=== PATIENT | male | born 1985 | race Caucasian/White ===

== ENCOUNTER 2016-11-24 19:59 | Inpatient (IN) | payer SELFPAY ==
[~2016-11-24] VITALS: Ht 182.9 cm; Wt 88.7 kg
[2016-11-24 20:01] VITALS: BP 139/99; PULSE 137; RESP 20; TEMP 100.8; O2SAT 85
[2016-11-24] MEDS ORDERED: SODIUM CHLOR 0.9% 1000 ML INJ 1,000 ML IV ONE (20:30)
[2016-11-24] MEDS ORDERED: SODIUM CHLORIDE 0.9% FLUSH 5 ML FLUSH IVF PRN (20:30)
[2016-11-24 20:39] VITALS: BP 158/84; PULSE 132; RESP 28; TEMP 102.5; O2SAT 86
[2016-11-24] MEDS: RESP: ALBUTEROL 2.5 MG/IPRATROPIUM 0.5 MG NEB (SCH) INH (20:43)
[2016-11-24 20:44] VITALS: O2SAT 96
[2016-11-24 20:46] LABS: AUTOMATED NEUTROPHIL # 2.9 TH/MM3 (1.8-7.7); BASOPHIL % 0.5 % (0.0-2.0); EOSINOPHIL % 0.6 % (0.0-4.0); HEMATOCRIT 36.3 % (39.0-51.0); LYMPH % 18.1 % (9.0-44.0); LYMPHOCYTE # 0.7 TH/MM3 (1.0-4.8); MEAN CELL VOLUME 83.3 FL (80.0-100.0); MEAN CORPUSCULAR HEMOGLOBIN 28.7 PG (27.0-34.0); MEAN CORPUSCULAR HGB CONC 34.4 % (32.0-36.0); MONO % 8.1 % (0.0-8.0); NEUT % 72.7 % (16.0-70.0); PLATELET COUNT 326 TH/MM3 (150-450); RED BLOOD COUNT 4.35 MIL/MM3 (4.50-5.90); RED CELL DISTRIBUTION WIDTH 14.4 % (11.6-17.2); WHITE BLOOD COUNT 3.9 TH/MM3 (4.0-11.0)
[2016-11-24 20:49] LABS: HEMO FLAGS AUTO DIFF
[2016-11-24] MEDS ORDERED: ACETAMINOPHEN 500 MG CPLT PO ONE (21:00)
[2016-11-24] MEDS ORDERED: AZITHROMYCIN INJ 500 MG in SODIUM CHLOR 0.9% 250 ML INJ 250 ML IV ONE (21:00)
[2016-11-24] MEDS ORDERED: cefTRIAXone INJ 1,000 MG in SODIUM CHLORIDE 0.9% INJ 100 ML IV ONE (21:00)
--- NOTE | 2016-11-24 21:02 | PD ---
HPI Chief Complaint: Respiratory Symptoms Time Seen by Provider: 20:56 Travel History International Travel<30 days: No Contact w/Intl Traveler<30days: No Traveled to known affect area: No History of Present Illness HPI 31-year-old male presents emergency Department with complaints of shortness of breath. The patient's history is assisted using the [employer] interpretive services. The patient is a Lebanese-speaking individual. The patient has been sick now for the past 15 days. He states that he has had intermittent fever and chills, cough, congestion which has gotten significantly worse in the last week. He has had increasing shortness of breath, dyspnea on exertion, that has gotten worse with dyspnea now at rest. He admits to headache , congestion, nausea, posttussive emesis and general malaise. He denies any ear pain or sore throat. No abdominal pain. No dysuria or frequency. No rashes or lesions. History of asthma as a child. COUNT INCLUDES THE [facility] Past Medical History Narrative Medical Asthma as a child Asthma: Yes Diminished Hearing: No Tetanus Vaccination: < 5 Years Past Surgical History Surgical History: No Previous Surgery Social History Alcohol Use: No Tobacco Use: No Substance Use: No Allergies-Medications (Allergen,Severity, Reaction): Coded Allergies: Penicillin (Verified Allergy, Unknown, 11/24/16) Physical Exam Narrative GENERAL: Well-developed, well-nourished in moderate respiratory distress. Speaks in 2-3 word sentences HEAD: Normocephalic, atraumatic. EYES: Pupils equal round and reactive. Extraocular motions intact. No scleral icterus. No injection or drainage. ENT: Nose clear. Throat without erythema, tonsillar hypertrophy or exudate. Uvula midline. Airway patent. NECK: Trachea midline. Supple, nontender, moves head freely. No central bony tenderness or spasm. CARDIOVASCULAR: Regular tachycardic rate and rhythm without murmurs, gallops, or rubs. RESPIRATORY: Tachypneic. diffuse decreased breath sounds. Few rhonchi. No wheezes or Rales. GASTROINTESTINAL: Abdomen soft, non-tender, nondistended. No hepato-splenomegaly , or palpable masses. No guarding. EXTREMITIES: No clubbing, cyanosis, or edema. No joint tenderness. BACK: Nontender without deformity. No flank tenderness. NEUROLOGICAL: Awake, alert and oriented x 3 .Cranial nerves grossly intact. Motor and sensory grossly within normal limits. Normal speech. Data Data Last Documented VS Vital Signs Date Time Temp Pulse Resp B/P Pulse Ox O2 Delivery O2 Flow Rate FiO2 11/24/16 20:44 96 Nasal Cannula 4.00 11/24/16 20:39 102.5 132 28 158/84 Orders Electrocardiogram (11/24/16 20:18) Basic Metabolic Panel (Bmp) (11/24/16 20:18) Complete Blood Count With Diff (11/24/16 20:18) Chest, Single Ap (11/24/16 20:18) Ecg Monitoring (11/24/16 20:18) Iv Access Insert/Monitor (11/24/16 20:18) Oximetry (11/24/16 20:18) Oxygen Administration (11/24/16 20:18) Albuterol-Ipratropium Neb (Duoneb Neb) (11/24/16 20:30) Sodium Chloride 0.9% Flush (Ns Flush) (11/24/16 20:30) Lactic Acid (11/24/16 20:18) Sodium Chlor 0.9% 1000 Ml Inj (Ns 1000 M (11/24/16 20:30) Influenzae A/B Antigen (11/24/16 20:18) B-Type Natriuretic Peptide (11/24/16 20:46) Blood Culture (11/24/16 20:46) Acetaminophen (Tylenol) (11/24/16 21:00) Ceftriaxone Inj (Rocephin Inj) (11/24/16 21:00) Azithromycin Inj (Zithromax Inj) (11/24/16 21:00) Admit Order (Ed Use Only) (11/24/16 21:54) Labs Laboratory Tests Test 11/24/16 11/24/16 20:30 20:45 White Blood Count 3.9 TH/MM3 Red Blood Count 4.35 MIL/MM3 Hemoglobin 12.5 GM/DL Hematocrit 36.3 % Mean Corpuscular Volume 83.3 FL Mean Corpuscular Hemoglobin 28.7 PG Mean Corpuscular Hemoglobin 34.4 % Concent Red Cell Distribution Width 14.4 % Platelet Count 326 TH/MM3 Mean Platelet Volume 7.1 FL Neutrophils (%) (Auto) 72.7 % Lymphocytes (%) (Auto) 18.1 % Monocytes (%) (Auto) 8.1 % Eosinophils (%) (Auto) 0.6 % Basophils (%) (Auto) 0.5 % Neutrophils # (Auto) 2.9 TH/MM3 Lymphocytes # (Auto) 0.7 TH/MM3 Monocytes # (Auto) 0.3 TH/MM3 Eosinophils # (Auto) 0.0 TH/MM3 Basophils # (Auto) 0.0 TH/MM3 CBC Comment AUTO DIFF Differential Total Cells 100 Counted Neutrophils % (Manual) 75 % Band Neutrophils % 13 % Lymphocytes % 4 % Monocytes % 8 % Neutrophils # (Manual) 3.4 TH/MM3 Differential Comment FINAL DIFF MANUAL Platelet Estimate NORMAL Platelet Morphology Comment NORMAL Ovalocytes 2+ [place]innie Cells 1+ Sodium Level 130 MEQ/L Potassium Level 3.4 MEQ/L Chloride Level 96 MEQ/L Carbon Dioxide Level 26.8 MEQ/L Anion Gap 7 MEQ/L Blood Urea Nitrogen 9 MG/DL Creatinine 0.76 MG/DL Estimat Glomerular Filtration 118 ML/MIN Rate Random Glucose 83 MG/DL Lactic Acid Level 1.0 mmol/L Calcium Level 8.2 MG/DL B-Type Natriuretic Peptide 12 PG/ML MDM Medical Decision Making Medical Screen Exam Complete: Yes Emergency Medical Condition: Yes Medical Record Reviewed: Yes Interpretation(s) CBC & BMP Diagram 11/24/16 20:30 Lactic: Negative Influenza: Negative EKG: Sinus tachycardia with a ventricular rate of 125. Left axis deviation with a axis of -28. No ST T wave changes. No STEMI. Differential Diagnosis MDM: High Differential diagnoses: Pneumonia, bronchitis, URI, asthma, RAD, legionnaire's disease, SARS, ARDS, influenza, bronchiolitis, RSV,PE,CHF Narrative Course Patient is placed on a quality assurance monitor, O2 monitoring, patient is given O2 by nasal cannula, IV is initiated. Patient is given 3 duo nebs, 1 L bolus of normal saline. 1 g of Tylenol by mouth, Rocephin 1 g IV and 500 mg of Zithromax IV. Blood cultures 2, influenza swab. The patient states that he is feeling subjectively improved after his breathing treatments and oxygen. Have spoken with Dr. Dallas who has agreed to admit the patient. This is respiratory distress, interstitial pneumonia, hypoxemia Diagnosis Primary Impression: Respiratory distress Additional Impressions: Interstitial pneumonia Hypoxemia Admitting Information Admitting Physician Requests: Admit Condition: Stable Dandy Nice Nov 24, 2016 21:02
--- NOTE | 2016-11-24 21:09 | RADRPT ---
EXAM DATE/TIME: 11/24/2016 20:31 [facility] COMPARISON: No previous studies available for comparison. INDICATIONS : Wheezing, Short of Breath. MEDICAL HISTORY : None. SURGICAL HISTORY : None. ENCOUNTER: Initial ACUITY: 1 day PAIN SCORE: 0/10 LOCATION: Bilateral chest FINDINGS: Mild hazy opacities seen throughout both lungs suggesting mild pulmonary edema versus atypical pneumo pippa or pneumonitis. Heart size upper limits of normal. No definite pleural effusion seen. No pneumoth orax. CONCLUSION: Bilateral diffuse hazy opacities as above. Amado Velasco MD on November 24, 2016 at 21:07 Board Certified Radiologist. This report was verified electronically.
[2016-11-24 21:17] LABS: BICARBONATE 26.8 MEQ/L (21.0-32.0)
[2016-11-24 21:19] LABS: POTASSIUM 3.4 MEQ/L (3.5-5.1)
[2016-11-24 21:30] LABS: BANDS 13 % (0-6); NEUTROPHIL # MANUAL DIFF 3.4 TH/MM3 (1.8-7.7); POLYS (SEG NEUTROPHILS) 75 % (16-70); WBC DIFF SAMPLE 100
[2016-11-24 21:31] LABS: BURR CELLS 1+ (NORMAL); OVALOCYTES 2+ (NORMAL); PLATELET ESTIMATE SMEAR NORMAL (NORMAL); PLATELET MORPHOLOGY NORMAL (NORMAL); SCAN/DIFF FINAL DIFF MANUAL
[2016-11-24] MEDS ORDERED: SODIUM CHLORIDE 0.9% FLUSH 5 ML FLUSH FLUSH PRN (22:15)
[2016-11-24] MEDS ORDERED: Vancomycin Consult Pharmacy 1 EA OTHER SCH (22:15)
[2016-11-24] MEDS ORDERED: RESP: ALBUTEROL 2.5 MG/IPRATROPIUM 0.5 MG NEB (PRN) NEB (22:15)
[2016-11-24] MEDS ORDERED: ONDANSETRON HCL 4 MG/2 ML VIAL IVP PRN (22:15)
[2016-11-24] MEDS ORDERED: BISACODYL 10 MG SUPP PR PRN (22:15)
--- NOTE | 2016-11-24 22:17 | HHI.HP ---
[facility] [place] No Primary Care Physician Admission Diagnosis respiratory distress, diffuse interstitial pneumonia, hypoxemia Diagnoses: (1) Sepsis Diagnosis: Principal (2) PNA (pneumonia) Diagnosis: Principal (3) Hypoxia Diagnosis: Principal (4) Hypokalemia Diagnosis: Principal (5) Hyponatremia Diagnosis: Principal Travel History International Travel<30 Days: No Contact w/Intl Traveler <30 Da: No Traveled to Known Affected Are: No History of Present Illness This is a Georgian-speaking 31-year-old male with no reported PMH who presented to the ER with complaints of fever, chills, cough and SOB x1 wk. Denies nausea , vomiting or sick contacts. On arrival, BP 139/99, HR 137, O2 sat 85% on RA, Temp 102.5. WBC 3.9. Bands 13. Na 130. K+ 3.4. Lactic Acid 1.0. CXR w/ diffuse bilateral hazy opacities. S/p Rocephin/Zithro and Blood Cultures in ER. Review of Systems Other ROS: 14 point review of systems otherwise negative. Past Family Social History Past Medical History PMH: None Past Surgical History PAST SURGICAL HISTORY: None Allergies: Coded Allergies: Penicillin (Verified Allergy, Unknown, 11/24/16) Family History PAST FAMILY HISTORY: Reviewed. No h/o DM or CAD Social History PAST SOCIAL HISTORY: Negative for alcohol, tobacco or drugs. Physical Exam Vital Signs Vital Signs Date Time Temp Pulse Resp B/P Pulse Ox O2 Delivery O2 Flow Rate FiO2 11/24/16 20:44 96 Nasal Cannula 4.00 11/24/16 20:41 Nasal Cannula 4 11/24/16 20:40 92 Nasal Cannula 4 11/24/16 20:39 102.5 132 28 158/84 86 Room Air 11/24/16 20:01 100.8 137 20 139/99 85 Room Air Physical Exam PE: GENERAL: Pleasant male in no acute distress. HEENT: PERRLA, EOMI. No scleral icterus or conjunctival pallor. No lid lag or facial droop. CARDIOVASCULAR: Regular rate and rhythm. No obvious murmurs to auscultation. No chest tenderness to palpation. RESPIRATORY: Scattered rhonchi. No wheezing. Clear to auscultation. Breath sounds equal bilaterally. GASTROINTESTINAL: Abdomen soft, non-tender, nondistended. BS normal. MUSCULOSKELETAL: Extremities without clubbing, cyanosis, or edema. No obvious deformities. NEUROLOGICAL: Awake, alert and oriented x4. No focal neurologic deficits. Moving both upper and lower extremities spontaneously. Laboratory Laboratory Tests Test 11/24/16 11/24/16 20:30 20:45 White Blood Count 3.9 Red Blood Count 4.35 Hemoglobin 12.5 Hematocrit 36.3 Mean Corpuscular Volume 83.3 Mean Corpuscular Hemoglobin 28.7 Mean Corpuscular Hemoglobin 34.4 Concent Red Cell Distribution Width 14.4 Platelet Count 326 Mean Platelet Volume 7.1 Neutrophils (%) (Auto) 72.7 Lymphocytes (%) (Auto) 18.1 Monocytes (%) (Auto) 8.1 Eosinophils (%) (Auto) 0.6 Basophils (%) (Auto) 0.5 Neutrophils # (Auto) 2.9 Lymphocytes # (Auto) 0.7 Monocytes # (Auto) 0.3 Eosinophils # (Auto) 0.0 Basophils # (Auto) 0.0 CBC Comment AUTO DIFF Differential Total Cells 100 Counted Neutrophils % (Manual) 75 Band Neutrophils % 13 Lymphocytes % 4 Monocytes % 8 Neutrophils # (Manual) 3.4 Differential Comment FINAL DIFF MANUAL Platelet Estimate NORMAL Platelet Morphology Comment NORMAL Ovalocytes 2+ [place] Cells 1+ Sodium Level 130 Potassium Level 3.4 Chloride Level 96 Carbon Dioxide Level 26.8 Anion Gap 7 Blood Urea Nitrogen 9 Creatinine 0.76 Estimat Glomerular Filtration 118 Rate Random Glucose 83 Lactic Acid Level 1.0 Calcium Level 8.2 B-Type Natriuretic Peptide 12 Date/Time Procedure Status Source Growth 11/24/16 20:55 Aerobic Blood Culture Received Blood Peripheral Pending 11/24/16 20:55 Anaerobic Blood Culture Received Blood Peripheral Pending 11/24/16 20:30 Influenza Types A,B Antigen (NUVIA) - Final Complete Nasal Washing NEGATIVE FOR FLU A AND B ANTIGEN.... Result Diagram: 11/24/16202911/24/162029 Assessment and Plan Problem List: (1) Sepsis ICD Code: A41.9 Status: Acute (2) PNA (pneumonia) ICD Code: J18.9 Status: Acute (3) Hypoxia ICD Code: R09.02 Status: Acute (4) Hyponatremia ICD Code: E87.1 Status: Acute (5) Hypokalemia ICD Code: E87.6 Status: Acute Assessment and Plan A/P: 1. Sepsis: Temp 102.5, HR 130's, WBC 3.9. Lactic Acid normal. Source-PNA. S /p Blood Cultures, Rocephin/Zithro in ER. Will continue w/ IV Vanc/Cefepime for broad spectrum coverage in light of sepsis w/ significant bandemia. Follow up cultures. 2. PNA: CXR w/ diffuse bilateral hazy opacities, images reviewed by me. IV Vanc/Cefepime, DuoNeb, Symbicort. Check Sputum Cultures. 3. Hypoxia: Significant hypoxia w/ O2 sat 85% on RA upon arrival, currently 93 % on 4L NC. Continue w/ IV Abx, DuoNeb, telemetry, monitor O2 sat closely. 4. Hypokalemia: K+ 3.4, s/p replacement, will recheck and replace as needed. 5. Hyponatremia: Na 130, start IVF, check U/a, repeat labs in am. 6. DVT Prophylaxis: SCD/Teds. 7. Social work for d/c planning as needed. 8. Case discussed w/ ER physician at length. Physician Certification 2 Midnight Certification Type: Admission for Inpatient Services Order for Inpatient Services The services are ordered in accordance with Medicare regulations or non- Medicare payer requirements, as applicable. In the case of services not specified as inpatient-only, they are appropriately provided as inpatient services in accordance with the 2-midnight benchmark. Estimated LOS (days): 2 days is the estimated time the patient will need to remain in the hospital, assuming treatment plan goals are met and no additional complications. Post-Hospital Plan: Not yet determined Cierra Dallas MD Nov 24, 2016 22:17
[2016-11-24 23:28] VITALS: BP 134/76; PULSE 110; RESP 24; O2SAT 93
[2016-11-25] VITALS (7 sets, daily range): BP systolic 118–158; BP diastolic 75–94; PULSE 102–124; RESP 20–22; TEMP 98.8–102.7; O2SAT 92–98
[2016-11-25] MEDS ORDERED: POTASSIUM CHLORIDE 20 MEQ CONTROLLED RELEASE TAB PO ONE (01:00)
[2016-11-25] MEDS ORDERED: [UNRECOGNIZED DRUG - REMARK] XX SCH (01:15)
[2016-11-25] MEDS: SODIUM CHLOR 0.9% 1000 ML INJ 1,000 ML IV SCH ×3 (02:10→18:13)
[2016-11-25] MEDS ORDERED: VANCOMYCIN INJ 2,000 MG in SODIUM CHLORID 0.9% 500 ML INJ 500 ML IV SCH (03:00)
[2016-11-25 04:48] LABS: AUTOMATED NEUTROPHIL # 3.1 TH/MM3 (1.8-7.7); BASOPHIL % 0.4 % (0.0-2.0); EOSINOPHIL % 0.6 % (0.0-4.0); HEMATOCRIT 32.8 % (39.0-51.0); LYMPH % 14.1 % (9.0-44.0); LYMPHOCYTE # 0.6 TH/MM3 (1.0-4.8); MEAN CELL VOLUME 83.6 FL (80.0-100.0); MEAN CORPUSCULAR HEMOGLOBIN 29.1 PG (27.0-34.0); MEAN CORPUSCULAR HGB CONC 34.8 % (32.0-36.0); MONO % 7.2 % (0.0-8.0); NEUT % 77.7 % (16.0-70.0); PLATELET COUNT 293 TH/MM3 (150-450); RED BLOOD COUNT 3.92 MIL/MM3 (4.50-5.90); RED CELL DISTRIBUTION WIDTH 14.8 % (11.6-17.2)
[2016-11-25 04:55] LABS: HEMO FLAGS AUTO DIFF
[2016-11-25 04:58] LABS: BLOOD, URINE NEG (NEG); COMMENT (UR) CULT NOT INDICATED; CULTURE IF INDICATED CULT NOT INDICATED; GLUCOSE,URINE NEG (NEG); KETONE, URINE NEG (NEG); MUCUS URINE FEW /lpf (OCC); NITRITE,URINE NEG (NEG); PH, URINE 6.5 (5.0-8.5); URINE COLOR YELLOW (YELLW/STRAW)
[2016-11-25 05:13] LABS: ALT (GPT) 30 U/L (12-78); ANION GAP 6 MEQ/L (5-15); AST (GOT) 59 U/L (15-37); BICARBONATE 29.5 MEQ/L (21.0-32.0); BLOOD UREA NITROGEN 7 MG/DL (7-18); CHLORIDE 101 MEQ/L (98-107); GLOMERULAR FILTRATION RATE 124 ML/MIN (>89); POTASSIUM 3.5 MEQ/L (3.5-5.1); SODIUM (NA) 136 MEQ/L (136-145)
[2016-11-25 05:15] LABS: ALKALINE PHOSPHATASE 78 U/L (45-117); TOTAL BILIRUBIN ADULT 0.5 MG/DL (0.2-1.0)
[2016-11-25] MEDS: RESP: ALBUTEROL 2.5 MG/IPRATROPIUM 0.5 MG NEB (SCH) NEB ×4 (07:10→22:11)
[2016-11-25 07:14] LABS: BANDS 3 % (0-6); EOSINOPHILS 1 % (0-4); MYELOCYTES 1 % (0-0); NEUTROPHIL # MANUAL DIFF 3.2 TH/MM3 (1.8-7.7); PLATELET ESTIMATE SMEAR NORMAL (NORMAL); PLATELET MORPHOLOGY NORMAL (NORMAL); POLYS (SEG NEUTROPHILS) 76 % (16-70); SCAN/DIFF FINAL DIFF MANUAL; WBC DIFF SAMPLE 100
[2016-11-25 07:15] LABS: OVALOCYTES 1+ (NORMAL)
[2016-11-25] MEDS: ACETAMINOPHEN 325 MG TAB PO PRN ×2 (08:14→21:29)
[2016-11-25] MEDS: ACETAMINOPHEN/HYDROcodone 325 MG/5 MG TAB PO PRN (08:52)
[2016-11-25] MEDS: SODIUM CHLORIDE 0.9% FLUSH 5 ML FLUSH FLUSH SCH ×2 (08:54→21:00)
[2016-11-25] MEDS ORDERED: BUDESONIDE-FORMOTEROL 160/4.5 MCG INHALER INH SCH (09:00)
[2016-11-25] MEDS ORDERED: CEFEPIME INJ 1,000 MG in SODIUM CHLORIDE 0.9% INJ 100 ML IV SCH (09:00)
--- NOTE | 2016-11-25 10:44 | HHI.PR ---
Subjective Remarks Follow-up for pneumonia Patient shortness of breath better, still coughing. No nausea or vomiting. Afebrile. Objective Vitals Vital Signs Date Time Temp Pulse Resp B/P Pulse Ox O2 Delivery O2 Flow Rate FiO2 11/25/16 09:52 18 11/25/16 07:10 99.8 108 20 141/79 98 Nasal Cannula 3 11/25/16 07:10 97 Nasal Cannula 3 11/25/16 05:37 95 Nasal Cannula 4 11/25/16 05:23 18 11/24/16 23:28 110 24 134/76 93 Nasal Cannula 4 11/24/16 20:44 96 Nasal Cannula 4.00 11/24/16 20:41 Nasal Cannula 4 11/24/16 20:40 92 Nasal Cannula 4 11/24/16 20:39 102.5 132 28 158/84 86 Room Air 11/24/16 20:01 100.8 137 20 139/99 85 Room Air I/O 11/24/16 11/24/16 11/24/16 11/25/16 11/25/16 11/25/16 07:00 15:00 23:00 07:00 15:00 23:00 Intake Total 240 ml 400 ml Output Total 600 ml Balance 240 ml -200 ml Intake Oral 240 ml 400 ml Output Urine Total 600 ml # Voids 1 # Bowel Movements 0 Result Diagram: 11/25/16 0408 11/25/16 0408 Imaging Last Impressions Chest X-Ray 11/24/162017 Signed Impressions: Service Date/Time: November 20:31 - CONCLUSION: Bilateral diffuse hazy opacities as above. Amado Velasco MD Objective Remarks Not in distress, well-nourished, looks stated age PERRL, pink conjunctiva without injection, anicteric Nose without bleeding, airway patent, oropharynx clear Supple neck, no masses or thyromegaly, trachea midline Normal rate and regular rhythm, no murmurs gallops or rubs appreciated. Decreased breath sounds bilaterally with occasional rhonchi. Normal bowel sounds, soft, non-tender, nondistended, no guarding. Extremities without clubbing, cyanosis, or edema. No rash of generalized distribution. Skin is warm and dry. AAO x3, no cranial nerve deficits, moves all 4 extremities, no focal neurologic deficits Normal mood, appropriate affect A/P Problem List: (1) Sepsis ICD Code: A41.9 Status: Acute (2) PNA (pneumonia) ICD Code: J18.9 Status: Acute (3) Hypoxia ICD Code: R09.02 Status: Acute (4) Hyponatremia ICD Code: E87.1 Status: Acute (5) Hypokalemia ICD Code: E87.6 Status: Acute Assessment and Plan This is a 31-year-old male presenting with shortness of breath, found to have pneumonia Sepsis secondary to pneumonia- tachycardic, febrile, tachypneic with leukopenia. No lactic acidosis. Chest x-ray personally reviewed showed bilateral infiltrates. Follow-up blood cultures and sputum culture. Continue vancomycin, switch cefepime to ceftriaxone and continue azithromycin. Continue duo nebs and oxygen support. Rapid flu negative. Check for Legionella antigen. Acute hypoxic respiratory failure-oxygen support as above, duo nebs Hypokalemia-replaced Hyponatremia-likely secondary to dehydration, resolved SCDs for DVT prophylaxis. Discharge Planning Discharge in 1-2 days Naren Cunningham MD Nov 25, 2016 10:44
[2016-11-25] MEDS: VANCOMYCIN INJ 1,500 MG in SODIUM CHLORID 0.9% 500 ML INJ 500 ML IV SCH ×2 (13:35→21:30)
--- NOTE | 2016-11-25 13:37 | EKG ---
Date Performed: 11/24/2016 Time Performed: 20:48:42 PTAGE: 31 years EKG: SINUS TACHYCARDIA BORDERLINE LEFT AXIS DEVIATION ABNORMAL RHYTHM ECG NO PREVIOUS TRACING DOCTOR: Penny Leo Interpretating Date/Time 11/25/2016 13:33:58
[2016-11-25] MEDS: ACETAMINOPHEN/HYDROcodone 325 MG/10 MG TAB PO PRN ×2 (14:48→21:29)
[2016-11-25] MEDS: cefTRIAXone INJ 1,000 MG in SODIUM CHLORIDE 0.9% INJ 100 ML IV SCH (21:29)
[2016-11-26] VITALS (8 sets, daily range): BP systolic 117–163; BP diastolic 65–95; PULSE 99–135; RESP 18–22; TEMP 98.2–102.8; O2SAT 92–95
[2016-11-26] MEDS: SODIUM CHLOR 0.9% 1000 ML INJ 1,000 ML IV SCH ×2 (04:13→13:15)
[2016-11-26] MEDS: ACETAMINOPHEN/HYDROcodone 325 MG/10 MG TAB PO PRN (05:46)
[2016-11-26] MEDS: VANCOMYCIN INJ 1,500 MG in SODIUM CHLORID 0.9% 500 ML INJ 500 ML IV SCH ×2 (05:47→14:00)
[2016-11-26 07:20] LABS: AUTOMATED NEUTROPHIL # 3.4 TH/MM3 (1.8-7.7); BASOPHIL % 0.5 % (0.0-2.0); EOSINOPHIL # 0.1 TH/MM3 (0-0.4); EOSINOPHIL % 1.4 % (0.0-4.0); HEMATOCRIT 32.7 % (39.0-51.0); HEMO FLAGS DIFF FINAL; LYMPH % 16.2 % (9.0-44.0); LYMPHOCYTE # 0.7 TH/MM3 (1.0-4.8); MEAN CELL VOLUME 83.4 FL (80.0-100.0); MEAN CORPUSCULAR HEMOGLOBIN 28.5 PG (27.0-34.0); MEAN CORPUSCULAR HGB CONC 34.2 % (32.0-36.0); MONO % 4.2 % (0.0-8.0); NEUT % 77.7 % (16.0-70.0); PLATELET COUNT 296 TH/MM3 (150-450); RED BLOOD COUNT 3.92 MIL/MM3 (4.50-5.90); RED CELL DISTRIBUTION WIDTH 14.4 % (11.6-17.2); WHITE BLOOD COUNT 4.4 TH/MM3 (4.0-11.0)
[2016-11-26 07:29] LABS: MAGNESIUM 1.8 MG/DL (1.5-2.5); POTASSIUM 3.6 MEQ/L (3.5-5.1)
[2016-11-26] MEDS: RESP: ALBUTEROL 2.5 MG/IPRATROPIUM 0.5 MG NEB (SCH) NEB ×3 (08:17→19:58)
[2016-11-26] MEDS: SODIUM CHLORIDE 0.9% FLUSH 5 ML FLUSH FLUSH SCH ×2 (09:00→20:53)
--- NOTE | 2016-11-26 11:19 | HHI.PR ---
Subjective Remarks Follow-up for shortness of breath Shortness of breath better today but still very dyspneic on exertion even when walking and at rest. MAXIMUM TEMPERATURE 102.7, still tachycardic. No nausea, vomiting or diarrhea. Patient is dizzy. Objective Vitals Vital Signs Date Time Temp Pulse Resp B/P Pulse Ox O2 Delivery O2 Flow Rate FiO2 11/26/16 08:19 94 Nasal Cannula 3.00 11/26/16 08:00 99.0 105 18 140/84 94 11/26/16 04:00 98.9 99 22 128/78 94 11/26/16 00:00 99.5 100 20 117/65 95 11/25/16 22:11 94 Nasal Cannula 3.00 11/25/16 20:00 102.7 124 22 151/90 92 11/25/16 17:28 92 Nasal Cannula 3.00 11/25/16 15:48 18 11/25/16 14:00 100.0 116 22 158/94 94 11/25/16 13:19 98.8 102 20 118/75 97 Nasal Cannula 3 I/O 11/25/16 11/25/16 11/25/16 11/26/16 11/26/16 11/26/16 07:00 15:00 23:00 07:00 15:00 23:00 Intake Total 240 ml 600 ml 1610 ml 1630 ml Output Total 600 ml 750 ml Balance 240 ml 0 ml 1610 ml 880 ml Intake Oral 240 ml 600 ml 360 ml 480 ml IV Total 1250 ml 1150 ml Output Urine Total 600 ml 750 ml # Voids 2 1 # Bowel Movements 0 Result Diagram: 11/26/16 0600 11/26/16 0610 Objective Remarks Mild respiratory distress. PERRL, pink conjunctiva without injection, anicteric Nose without bleeding, airway patent, oropharynx clear Supple neck, no masses or thyromegaly, trachea midline Tachycardic, regular rhythm, no murmurs Tachypneic, crackles at both bases, occasional rhonchi. Normal bowel sounds, soft, non-tender, nondistended, no guarding. Extremities without clubbing, cyanosis, or edema. No rash of generalized distribution. Skin is warm and dry. AAO x3, no cranial nerve deficits, moves all 4 extremities, no focal neurologic deficits Normal mood, appropriate affect A/P Problem List: (1) Sepsis ICD Code: A41.9 Status: Acute (2) PNA (pneumonia) ICD Code: J18.9 Status: Acute (3) Hypoxia ICD Code: R09.02 Status: Acute (4) Hyponatremia ICD Code: E87.1 Status: Acute (5) Hypokalemia ICD Code: E87.6 Status: Acute Assessment and Plan This is a 31-year-old male presenting with shortness of breath, found to have pneumonia Sepsis secondary to pneumonia- tachycardic, febrile, tachypneic with leukopenia. Still febrile. No lactic acidosis. Chest x-ray personally reviewed showed bilateral infiltrates. Blood culture, sputum culture, rapid flu , Legionella antigen negative. Patient allegedly traveled from [place] a month ago. HIV serology negative allegedly 15 days ago. Continue vancomycin, continue ceftriaxone, start azithromycin. Continue duo nebs around the clock and as needed, continue oxygen support. Check CT scan of the chest. Rule out PE as well. Recheck CBC and BMP tomorrow. Continue IVF, increase rate Acute hypoxic respiratory failure-oxygen support as above, duo nebs Hypokalemia-replaced Hyponatremia-likely secondary to dehydration, resolved SCDs for DVT prophylaxis. Discharge Planning Discharge in 1-2 days Naren Cunningham MD Nov 26, 2016 11:18
[2016-11-26] MEDS ORDERED: AZITHROMYCIN INJ 500 MG in SODIUM CHLOR 0.9% 250 ML INJ 250 ML IV SCH (12:00)
[2016-11-26] MEDS ORDERED: PHARMACY ORDERED LAB XX ONE (13:45)
[2016-11-26] MEDS ORDERED: IOHEXOL 350 MG/ML 10 ML VIAL (for RAD DIAG) IV ONE (14:24)
--- NOTE | 2016-11-26 14:33 | RADRPT ---
EXAM DATE/TIME: 11/26/2016 14:16 [facility] COMPARISON: CHEST SINGLE AP, November 24, 2016, 20:31. INDICATIONS : Shortness of breath, hypoxia; evaluate for pulmonary emboli. IV CONTRAST: 65 cc Omnipaque 350 (iohexol) IV RADIATION DOSE: 23.27 CTDIvol (mGy) MEDICAL HISTORY : None SURGICAL HISTORY : None. ENCOUNTER: Initial ACUITY: 1 day PAIN SCALE: 0/10 LOCATION: chest TECHNIQUE: Volumetric scanning of the chest was performed using a pulmonary embolism protocol MIP images were re constructed. Using automated exposure control and adjustment of the mA and/or kV according to patien t size, radiation dose was kept as low as reasonably achievable to obtain optimal diagnostic quality images. FINDINGS: PULMONARY ARTERIES: No filling defects are seen in the pulmonary arteries through the segmental level. Enlargement of the pulmonary trunk. LUNGS: There is diffuse bilateral interstitial and alveolar opacities with a somewhat miliary type pattern.. No concerning pulmonary nodule is visualized. PLEURAE: There is no pleural thickening or pleural effusion. MEDIASTINUM: There is good visualization of the great vessels of the middle mediastinum. Scattered lymph nodes thr oughout the mediastinum and upper abdomen, nonspecific. MUSCULOSKELETAL: Within normal limits for patient age. MISCELLANEOUS: The visualized upper abdominal organs demonstrate no acute abnormality. CONCLUSION: 1. No evidence for pulmonary embolism. 2. Diffuse interstitial and alveolar opacities, nonspecific but likely infectious. 3. Scattered lymph nodes within the mediastinum and upper abdomen, likely reactive. 4. Enlargement of the main pulmonary trunk suggesting elevated pulmonary arterial hypertension. Duncan Gann MD on November 26, 2016 at 14:27 Board Certified Radiologist. This report was verified electronically.
[2016-11-26] MEDS: methylPREDNISolone SOD SUCC 40 MG/1 ML VIAL IV PUSH SCH ×2 (14:45→20:52)
[2016-11-26] MEDS: cefTRIAXone INJ 1,000 MG in SODIUM CHLORIDE 0.9% INJ 100 ML IV SCH (20:53)
[2016-11-26] MEDS: VANCOMYCIN INJ 2,000 MG in SODIUM CHLORID 0.9% 500 ML INJ 500 ML IV SCH (22:00)
[2016-11-27] VITALS (8 sets, daily range): BP systolic 140–155; BP diastolic 80–96; PULSE 76–118; RESP 18–22; TEMP 97.4–98.2; O2SAT 94–98
[2016-11-27] MEDS: SODIUM CHLOR 0.9% 1000 ML INJ 1,000 ML IV SCH ×2 (02:35→08:31)
[2016-11-27 03:53] LABS: CD 19 PERCENT 3 % (6-29); CD3 ABSOLUTE 395 (840-3060); CD4/CD8 RATIO 0.2 (0.86-5.00); CD8 ABSOLUTE 336 (180-1170); LYMPHOCYTES, ABSOLUTE 583 (850-3900)
[2016-11-27] MEDS: VANCOMYCIN INJ 2,000 MG in SODIUM CHLORID 0.9% 500 ML INJ 500 ML IV SCH ×3 (06:06→22:32)
[2016-11-27] MEDS: methylPREDNISolone SOD SUCC 40 MG/1 ML VIAL IV PUSH SCH ×2 (06:06→17:42)
[2016-11-27] MEDS: RESP: ALBUTEROL 2.5 MG/IPRATROPIUM 0.5 MG NEB (SCH) NEB ×3 (08:12→19:10)
[2016-11-27] MEDS: SODIUM CHLORIDE 0.9% FLUSH 5 ML FLUSH FLUSH SCH ×2 (08:31→20:49)
[2016-11-27 09:40] LABS: AUTOMATED NEUTROPHIL # 2.5 TH/MM3 (1.8-7.7); BASOPHIL % 0.4 % (0.0-2.0); EOSINOPHIL # 0.1 TH/MM3 (0-0.4); EOSINOPHIL % 1.8 % (0.0-4.0); HEMO FLAGS DIFF FINAL; LYMPH % 14.7 % (9.0-44.0); LYMPHOCYTE # 0.5 TH/MM3 (1.0-4.8); MEAN CELL VOLUME 83.4 FL (80.0-100.0); MEAN CORPUSCULAR HEMOGLOBIN 28.7 PG (27.0-34.0); MEAN CORPUSCULAR HGB CONC 34.4 % (32.0-36.0); MONO % 7.5 % (0.0-8.0); NEUT % 75.6 % (16.0-70.0); PLATELET COUNT 305 TH/MM3 (150-450); RED BLOOD COUNT 4.07 MIL/MM3 (4.50-5.90); RED CELL DISTRIBUTION WIDTH 14.7 % (11.6-17.2); WHITE BLOOD COUNT 3.3 TH/MM3 (4.0-11.0)
[2016-11-27 10:15] LABS: BICARBONATE 29.8 MEQ/L (21.0-32.0); POTASSIUM 3.8 MEQ/L (3.5-5.1)
[2016-11-27] MEDS: AZITHROMYCIN 250 MG TAB PO SCH (12:39)
--- NOTE | 2016-11-27 13:21 | HHI.PR ---
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 Objective Vitals Vital Signs Date Time Temp Pulse Resp B/P Pulse Ox O2 Delivery O2 Flow Rate FiO2 11/27/16 12:00 97.9 110 22 140/88 94 11/27/16 08:15 98 Nasal Cannula 3.00 11/27/16 08:00 98.0 95 18 150/96 96 11/27/16 04:24 97.7 93 18 151/94 97 11/27/16 04:09 Nasal Cannula 3.00 11/27/16 00:52 97.4 105 18 155/94 95 11/27/16 00:00 Nasal Cannula 3.00 11/26/16 20:00 98.2 126 20 156/83 92 11/26/16 20:00 Nasal Cannula 3.00 11/26/16 20:00 114 11/26/16 19:58 95 Nasal Cannula 3.00 11/26/16 16:00 102.8 135 20 163/95 93 I/O 11/26/16 11/26/16 11/26/16 11/27/16 11/27/16 11/27/16 07:00 15:00 23:00 07:00 15:00 23:00 Intake Total 1630 ml 720 ml 761 ml 1574 ml Output Total 750 ml 1300 ml 800 ml Balance 880 ml -580 ml 761 ml 774 ml Intake Oral 480 ml 720 ml 520 ml IV Total 1150 ml 761 ml 1054 ml Output Urine Total 750 ml 1300 ml 800 ml # Voids 4 # Bowel Movements 0 1 Result Diagram: 11/27/16 0816 11/27/16 0816 Objective Remarks Not in distress, less tachypneic PERRL, pink conjunctiva without injection, anicteric Nose without bleeding, airway patent, oropharynx clear Supple neck, no masses or thyromegaly, trachea midline Tachycardic, regular rhythm, no murmurs Less Tachypneic, crackles at both bases, better, no rhonchi or wheezing Normal bowel sounds, soft, non-tender, nondistended, no guarding. Extremities without clubbing, cyanosis, or edema. No rash of generalized distribution. Skin is warm and dry. AAO x3, no cranial nerve deficits, moves all 4 extremities, no focal neurologic deficits Normal mood, appropriate affect A/P Problem List: (1) Sepsis ICD Code: A41.9 Status: Acute (2) PNA (pneumonia) ICD Code: J18.9 Status: Acute (3) Hypoxia ICD Code: R09.02 Status: Acute (4) Hyponatremia ICD Code: E87.1 Status: Acute (5) Hypokalemia ICD Code: E87.6 Status: Acute Assessment and Plan This is a 31-year-old male presenting with shortness of breath, found to have pneumonia Sepsis secondary to pneumonia- tachycardic, febrile, tachypneic with leukopenia , bandemia. No lactic acidosis. Chest x-ray personally reviewed showed bilateral infiltrates. Blood culture, sputum culture, rapid flu, Legionella antigen negative. Patient allegedly traveled from [place] a month ago. HIV serology negative allegedly 15 days ago. First day that he is better today, CT personally reviewed showed diffuse interstitial alveolar opacities, no PE. Continue vancomycin, continue ceftriaxone, azithromycin, possibly stop vanco tomorrow. Continue duo nebs around the clock and as needed, continue oxygen support.Cont IVF for now. Bandemia resolved. Decrease solumedrol, switch azithromycin to oral Acute hypoxic respiratory failure-oxygen support as above, duo nebs Hypokalemia-replaced Hyponatremia-likely secondary to dehydration, resolved SCDs for DVT prophylaxis. Discharge Planning Discharge in 1-2 days Naren Cunningham MD Nov 27, 2016 13:21
[2016-11-27] MEDS ORDERED: PHARMACY ORDERED LAB XX ONE ×2 (13:45→21:30)
[2016-11-27] MEDS: PANTOPRAZOLE SOD 20 MG DELAYED RELEASE TAB PO SCH (14:34)
[2016-11-27] MEDS: cefTRIAXone INJ 1,000 MG in SODIUM CHLORIDE 0.9% INJ 100 ML IV SCH (20:47)
[2016-11-28] VITALS (10 sets, daily range): BP systolic 125–141; BP diastolic 66–85; PULSE 81–132; RESP 18–22; TEMP 97.3–98.5; O2SAT 93–98
[2016-11-28] MEDS: methylPREDNISolone SOD SUCC 40 MG/1 ML VIAL IV PUSH SCH ×2 (06:00→17:37)
[2016-11-28] MEDS: VANCOMYCIN INJ 2,000 MG in SODIUM CHLORID 0.9% 500 ML INJ 500 ML IV SCH ×3 (06:00→23:00)
[2016-11-28] MEDS: SODIUM CHLOR 0.9% 1000 ML INJ 1,000 ML IV SCH ×3 (06:09→21:25)
[2016-11-28 07:06] LABS: AUTOMATED NEUTROPHIL # 9.2 TH/MM3 (1.8-7.7); BASOPHIL % 0.3 % (0.0-2.0); HEMATOCRIT 33.3 % (39.0-51.0); HEMO FLAGS DIFF FINAL; LYMPH % 3.5 % (9.0-44.0); LYMPHOCYTE # 0.3 TH/MM3 (1.0-4.8); MEAN CELL VOLUME 82.3 FL (80.0-100.0); MEAN CORPUSCULAR HGB CONC 35.2 % (32.0-36.0); MONO % 3.8 % (0.0-8.0); NEUT % 92.4 % (16.0-70.0); PLATELET COUNT 321 TH/MM3 (150-450); RED BLOOD COUNT 4.04 MIL/MM3 (4.50-5.90)
[2016-11-28 07:28] LABS: BICARBONATE 26.7 MEQ/L (21.0-32.0)
[2016-11-28] MEDS: PANTOPRAZOLE SOD 20 MG DELAYED RELEASE TAB PO SCH (08:53)
[2016-11-28] MEDS: SODIUM CHLORIDE 0.9% FLUSH 5 ML FLUSH FLUSH SCH ×2 (08:53→21:00)
[2016-11-28] MEDS: AZITHROMYCIN 250 MG TAB PO SCH (08:53)
[2016-11-28] MEDS: RESP: ALBUTEROL 2.5 MG/IPRATROPIUM 0.5 MG NEB (SCH) NEB ×3 (14:00→19:42)
--- NOTE | 2016-11-28 14:06 | HHI.PR ---
Subjective Remarks The patient is Vincentian-speaking only. The computer translation service was used. Follow up pneumonia, hypoxia. The patient states that he feels much better today. Denies chest pain, dyspnea, nausea, vomiting. Objective Vitals Vital Signs Date Time Temp Pulse Resp B/P Pulse Ox O2 Delivery O2 Flow Rate FiO2 11/28/16 12:04 98.0 114 22 131/67 95 11/28/16 08:04 97.5 105 22 137/80 94 11/28/16 08:00 Nasal Cannula 2.00 11/28/16 04:00 Nasal Cannula 3.00 11/28/16 04:00 97.3 81 20 125/66 98 11/28/16 00:00 Nasal Cannula 3.00 11/28/16 00:00 97.7 98 20 133/70 97 11/27/16 20:45 Nasal Cannula 3.00 11/27/16 20:00 103 11/27/16 20:00 97.4 118 20 140/80 97 11/27/16 16:00 98.2 110 22 144/81 97 I/O 11/27/16 11/27/16 11/27/16 11/28/16 11/28/16 11/28/16 07:00 15:00 23:00 07:00 15:00 23:00 Intake Total 1574 ml 2252 ml 1537 ml 977 ml Output Total 800 ml 1000 ml 800 ml 500 ml Balance 774 ml 1252 ml 737 ml 477 ml Intake Oral 520 ml 1000 ml 240 ml 280 ml IV Total 1054 ml 1252 ml 1297 ml 697 ml Output Urine Total 800 ml 1000 ml 800 ml 500 ml # Bowel Movements 1 1 0 0 Result Diagram: 11/28/16 0544 11/28/16 [address] Angiography 11/26/16 0000 Signed Impressions: Service Date/Time: Saturday, November 26, 2016 14:16 - CONCLUSION: 1. No evidence for pulmonary embolism. 2. Diffuse interstitial and alveolar opacities , nonspecific but likely infectious. 3. Scattered lymph nodes within the mediastinum and upper abdomen, likely reactive. 4. Enlargement of the main pulmonary trunk suggesting elevated pulmonary arterial hypertension. Duncan Gann MD Chest X-Ray 11/24/162017 Signed Impressions: Service Date/Time: November 20:31 - CONCLUSION: Bilateral diffuse hazy opacities as above. Amado Velasco MD Objective Remarks General: No acute distress. Heart: Regular rate and rhythm. No murmur. Lungs: Mild bibasilar crackles. Breathing is nonlabored. Abdomen: Soft, nontender, nondistended. Extremities: No lower extremity edema. Psych: Alert and oriented. Procedures None Urinary Catheter: No Vascular Central Line Catheter: No A/P Problem List: (1) Sepsis ICD Code: A41.9 Status: Resolved (2) PNA (pneumonia) ICD Code: J18.9 Status: Acute (3) Hypoxia ICD Code: R09.02 Status: Acute (4) Hyponatremia ICD Code: E87.1 Status: Resolved (5) Hypokalemia ICD Code: E87.6 Status: Resolved Assessment and Plan 1. Sepsis secondary to pneumonia: Sepsis has improved. Patient initially presented with tachycardia, fever, tachypnea, leukopenia, bandemia. 2. Pneumonia: Continue antibiotics. Still requiring supplemental oxygen. Continue bronchodilators, steroids. 3. Acute hypoxic respiratory failure: Improving. Continue supplemental oxygen, bronchodilators. 4. Hypokalemia, hyponatremia: Resolved. 5. Low CD4 count: Appears to be HIV/AIDS. Will request infectious disease recommendations regarding prophylaxis. I spoke with him about the lab results using the practical nurse clinical coordinator. The patient states that he had a negative HIV test 15 days ago and does not want another test repeated at this time. Discharge Planning Anticipate discharge home soon, when respiratory status has improved. Carmelo Pratt MD Nov 28, 2016 14:06
[2016-11-28] MEDS: cefTRIAXone INJ 1,000 MG in SODIUM CHLORIDE 0.9% INJ 100 ML IV SCH (21:25)
[2016-11-29] VITALS (10 sets, daily range): BP systolic 128–155; BP diastolic 79–96; PULSE 84–121; RESP 18–20; TEMP 97.8–98.6; O2SAT 93–100
[2016-11-29] MEDS ORDERED: PHARMACY ORDERED LAB XX ONE (05:45)
[2016-11-29] MEDS: methylPREDNISolone SOD SUCC 40 MG/1 ML VIAL IV PUSH SCH ×2 (05:53→18:46)
[2016-11-29] MEDS: VANCOMYCIN INJ 2,000 MG in SODIUM CHLORID 0.9% 500 ML INJ 500 ML IV SCH (05:53)
[2016-11-29] MEDS: RESP: ALBUTEROL 2.5 MG/IPRATROPIUM 0.5 MG NEB (SCH) NEB ×3 (07:47→19:39)
--- NOTE | 2016-11-29 09:20 | RADRPT ---
EXAM DATE/TIME: 11/29/2016 08:55 [facility] COMPARISON: CT PULMONARY ANGIOGRAM, November 26, 2016, 14:16. CHEST SINGLE AP, November 24, 2016, 20:31. INDICATIONS : Shortness of breath. Hypoxia. Abnormal plain film and CT demonstrating diffuse alveolar opacities. MEDICAL HISTORY : None. SURGICAL HISTORY : None. ENCOUNTER: Subsequent ACUITY: 4 - 6 days PAIN SCORE: 0/10 LOCATION: Bilateral chest FINDINGS: PA and lateral views of the chest were obtained and again demonstrate diffuse hazy alveolar opacities in both lungs with no focal consolidation or effusion. The heart size is at the upper limits of norm al. The bony thorax remains intact. CONCLUSION: No significant change in the diffuse alveolar opacities. Ian Mcdaniels MD on November 29, 2016 at 9:17 Board Certified Radiologist. This report was verified electronically.
[2016-11-29] MEDS: AZITHROMYCIN 250 MG TAB PO SCH (09:39)
[2016-11-29] MEDS: PANTOPRAZOLE SOD 20 MG DELAYED RELEASE TAB PO SCH (09:39)
[2016-11-29] MEDS: SODIUM CHLORIDE 0.9% FLUSH 5 ML FLUSH FLUSH SCH ×2 (09:40→21:00)
--- NOTE | 2016-11-29 10:59 | PD.CONS ---
History of Present Illness Service Infectious disease Consult Requested By Dr Sol Pratt Primary Care Physician No Primary Care Physician Diagnoses: History of Present Illness Patient seen and examined. Records reviewed. History somewhat sketchy, and there are some inconsistencies in the history that I got from the patient using a senior manufacturing supervisor. She is a 31-year-old male, visiting from [facility], presented to the hospital complaining of one-week history of fever or chills cough and shortness of breath. He denies any sputum production, or any hemoptysis. He has been febrile the first 3 hospital days. There's been no nausea or vomiting. Denies any exposure to any sick contacts. His white count has been on the low side. CD4 count was done and it was 68. Initially he did not want to have HIV testing and claimed that testing was done somewhere else. He had mentioned that it was negative. He has agreed to do the HIV testing today. His temperatures have improved. He is still having some shortness of breath although it has not been worse. He is on nasal O2. Patient has been on Vanco and Rocephin. Infectious disease consultation is requested to evaluate the patient. Review of Systems Constitutional: COMPLAINS OF: Fever, Chills Eyes: DENIES: Eye pain Ears, nose, mouth, throat: DENIES: Oral lesions, Throat pain, Ear Pain, Sinus Pain, Odynophagia Respiratory: COMPLAINS OF: Cough, Shortness of breath, DENIES: Hemoptysis Cardiovascular: DENIES: Chest pain, Palpitations Gastrointestinal: DENIES: Abdominal pain, Diarrhea, Nausea, Vomiting, Difficulty Swallowing Genitourinary: DENIES: Dysuria Integumentary: DENIES: Rash Neurologic: DENIES: Headache Psychiatric: COMPLAINS OF: Anxiety Past Family Social History Allergies: Coded Allergies: No Known Allergies (Unverified , 11/25/16) Past Medical History None Past Surgical History None Active Ordered Medications Tylenol [place] Albuterol Zithromax Rocephin Dulcolax Solu-Medrol Zofran Protonix Vancomycin Social History Patient states he is originally from [facility], and here on vacation He is single No smoking history No alcohol abuse No drug use Physical Exam Vital Signs Vital Signs Date Time Temp Pulse Resp B/P Pulse Ox O2 Delivery O2 Flow Rate FiO2 11/29/16 08:04 97.8 105 18 147/83 95 11/29/16 04:00 Nasal Cannula 2.00 11/29/16 04:00 97.9 84 18 128/89 96 11/29/16 00:00 97.8 104 18 155/96 99 11/29/16 00:00 Nasal Cannula 2.00 11/28/16 20:02 Nasal Cannula 2.00 11/28/16 20:02 98.4 132 18 141/85 93 11/28/16 20:00 123 11/28/16 19:45 96 Nasal Cannula 3.00 11/28/16 16:04 98.5 132 20 138/74 94 11/28/16 15:01 93 11/28/16 14:37 98 Nasal Cannula 3.00 11/28/16 12:15 Nasal Cannula 2.00 11/28/16 12:04 98.0 114 22 131/67 95 Physical Exam GENERAL: This is a well-nourished, well-developed male, awake and alert, looks comfortable at rest, on nasal O2. SKIN: Cool and moist. No generalized rash or ecchymosis. HEAD: Atraumatic. Normocephalic. No temporal or scalp tenderness. EYES: Pupils equal round and reactive. Extraocular motions intact. No scleral icterus. No injection or drainage. ENT: Nose without bleeding, or purulent drainage. Moist oral mucosa, no oral thrush. Throat without erythema, or exudate. Uvula midline. Airway patent. NECK: Trachea midline. No JVD or lymphadenopathy. Supple, nontender, no meningeal signs. CARDIOVASCULAR: Regular rate and rhythm without murmurs, gallops, or rubs. RESPIRATORY: Clear to auscultation, but decrease throughout the whole zazueta. Breath sounds equal bilaterally. No wheezes, rales, or rhonchi. GASTROINTESTINAL: Abdomen soft, nondistended, has mild right upper quadrant tenderness. Bowel sounds are present and normoactive. No hepato-splenomegaly, or palpable masses. No guarding. No rebound. MUSCULOSKELETAL: Extremities without clubbing, cyanosis, or edema. No joint tenderness, effusion, or edema noted. No calf tenderness. Negative Homans sign bilaterally. NEUROLOGICAL: Awake and alert. Cranial nerves II through XII intact. Motor and sensory grossly within normal limits. Five out of 5 muscle strength in all muscle groups. Normal speech. PSYCH: Calm and cooperative LINE: PIV no evidence of infection Laboratory Laboratory Tests Test 11/28/16 11/29/16 19:33 05:45 Lactate Dehydrogenase 484 Vancomycin Level Trough 15.3 Date/Time Procedure Status Source Growth 11/25/16 04:15 Legionella Antigen - Final Complete Urine Other PRESUMPTIVE NEGATIVE FOR LEGIONELLA P... 11/24/16 20:55 Aerobic Blood Culture - Preliminary Resulted Blood Peripheral NO GROWTH IN 4 DAYS 11/24/16 20:55 Anaerobic Blood Culture - Preliminary Resulted Blood Peripheral NO GROWTH IN 4 DAYS 11/24/16 20:30 Influenza Types A,B Antigen (NUVIA) - Final Complete Nasal Washing NEGATIVE FOR FLU A AND B ANTIGEN.... Result Diagram: 11/28/16 0544 11/28/16 0544 Imaging RADIOLOGY STUDIES/FILMS REVIEWED Chest X-Ray 11/29/16 0000 Signed Impressions: Service Date/Time: Tuesday, November 29, 2016 08:55 - CONCLUSION: No significant change in the diffuse alveolar opacities. Ian Mcdaniels MD CT Angiography 11/26/16 0000 Signed Impressions: Service Date/Time: Saturday, November 26, 2016 14:16 - CONCLUSION: 1. No evidence for pulmonary embolism. 2. Diffuse interstitial and alveolar opacities , nonspecific but likely infectious. 3. Scattered lymph nodes within the mediastinum and upper abdomen, likely reactive. 4. Enlargement of the main pulmonary trunk suggesting elevated pulmonary arterial hypertension. Duncan Gann MD Assessment and Plan Assessment and Plan IMPRESSION Sepsis on admission, due to bilateral pneumonia Bilateral Pneumonia, very worrisome for OI, has low CD4 counts - has elevated LDH Hypoxemia due to lizette pneumonia Low CD4 count, likely HIV (+) RECOMMENDATION Levaquin for CAP Bactrim for possible PCP Change steroids to po HIV Ab testing - explained test to patient, and he agrees, RN in room with me and we had a senior manufacturing supervisor Check O2 sat on RA - patient states he needs to fly back to [facility] and told him we need to have good O2 before its safe to fly Monitor progress I will follow along with you Thank you for this consultation Discussed Condition With Explained plan to patient using a senior manufacturing supervisor D/W Lindsay Cline MD Nov 29, 2016 10:59
--- NOTE | 2016-11-29 14:11 | HHI.PR ---
Subjective Remarks Computer translation service used during this visit. Follow-up pneumonia, hypoxia. The patient states that he feels better today. Shortness of breath has improved. No complaints at this time. Patient states that he can delay his flight until Monday at the latest without having to purchase a new ticket. Objective Vitals Vital Signs Date Time Temp Pulse Resp B/P Pulse Ox O2 Delivery O2 Flow Rate FiO2 11/29/16 13:26 94 Nasal Cannula 2.00 11/29/16 12:04 98.1 119 18 143/86 93 11/29/16 08:04 97.8 105 18 147/83 95 11/29/16 04:00 Nasal Cannula 2.00 11/29/16 04:00 97.9 84 18 128/89 96 11/29/16 00:00 97.8 104 18 155/96 99 11/29/16 00:00 Nasal Cannula 2.00 11/28/16 20:02 Nasal Cannula 2.00 11/28/16 20:02 98.4 132 18 141/85 93 11/28/16 20:00 123 11/28/16 19:45 96 Nasal Cannula 3.00 11/28/16 16:04 98.5 132 20 138/74 94 11/28/16 15:01 93 11/28/16 14:37 98 Nasal Cannula 3.00 I/O 11/28/16 11/28/16 11/28/16 11/29/16 11/29/16 11/29/16 07:00 15:00 23:00 07:00 15:00 23:00 Intake Total 977 ml 720 ml 2182 ml 1198 ml Output Total 500 ml 900 ml 2050 ml 1350 ml Balance 477 ml -180 ml 132 ml -152 ml Intake Oral 280 ml 720 ml 1080 ml 360 ml IV Total 697 ml 1102 ml 838 ml Output Urine Total 500 ml 900 ml 2050 ml 1350 ml # Bowel Movements 0 0 0 0 Result Diagram: 11/28/1644 11/28/1644 Imaging Last Impressions Chest X-Ray 11/29/16 0000 Signed Impressions: Service Date/Time: Tuesday, November 29, 2016 08:55 - CONCLUSION: No significant change in the diffuse alveolar opacities. Ian Mcdaniels MD CT Angiography 11/26/16 0000 Signed Impressions: Service Date/Time: Saturday, November 26, 2016 14:16 - CONCLUSION: 1. No evidence for pulmonary embolism. 2. Diffuse interstitial and alveolar opacities , nonspecific but likely infectious. 3. Scattered lymph nodes within the mediastinum and upper abdomen, likely reactive. 4. Enlargement of the main pulmonary trunk suggesting elevated pulmonary arterial hypertension. Duncan Gann MD Objective Remarks General: No acute distress. Heart: Regular rate and rhythm. No murmur. Lungs: Clear to auscultation bilaterally. Breathing is nonlabored. Abdomen: Soft, nontender, nondistended. Extremities: No lower extremity edema. Psych: Alert and oriented. Procedures None Urinary Catheter: No Vascular Central Line Catheter: No A/P Problem List: (1) Sepsis ICD Code: A41.9 Status: Resolved (2) PNA (pneumonia) ICD Code: J18.9 Status: Acute (3) Hypoxia ICD Code: R09.02 Status: Acute (4) Hyponatremia ICD Code: E87.1 Status: Resolved (5) Hypokalemia ICD Code: E87.6 Status: Resolved Assessment and Plan 1. Sepsis secondary to pneumonia: Sepsis has improved. Patient initially presented with tachycardia, fever, tachypnea, leukopenia, bandemia. 2. Pneumonia: Possibly opportunistic infection. Appreciate infectious disease recommendations. Continue antibiotics. Still requiring supplemental oxygen. Continue bronchodilators, steroids. 3. Acute hypoxic respiratory failure: Improving. Continue supplemental oxygen, bronchodilators. 4. Hypokalemia, hyponatremia: Resolved. 5. Low CD4 count: Appears to be HIV/AIDS. Appreciate infectious disease recommendations. Patient authorized HIV testing on further discussion yesterday. HIV confirmation test pending. Discharge Planning Anticipate discharge home next 1-2 days if okay with infectious disease. Carmelo Pratt MD Nov 29, 2016 14:11
[2016-11-29] MEDS: LEVOFLOXACIN 750 MG TAB PO SCH (14:49)
[2016-11-29] MEDS: SULFAMETHOXAZOLE-TRIMETHOPRIM DS 800-160 MG TAB PO SCH ×2 (14:49→18:46)
[2016-11-29] MEDS: ACETAMINOPHEN/HYDROcodone 325 MG/5 MG TAB PO PRN (18:51)
[2016-11-29] MEDS: SODIUM CHLOR 0.9% 1000 ML INJ 1,000 ML IV SCH (22:11)
[2016-11-30] VITALS (11 sets, daily range): BP systolic 131–143; BP diastolic 71–98; PULSE 102–128; RESP 18–20; TEMP 98.1–102.7; O2SAT 89–97
[2016-11-30] MEDS: SULFAMETHOXAZOLE-TRIMETHOPRIM DS 800-160 MG TAB PO SCH ×5 (00:30→23:56)
[2016-11-30] MEDS: methylPREDNISolone SOD SUCC 40 MG/1 ML VIAL IV PUSH SCH ×2 (06:00→17:18)
[2016-11-30] MEDS: RESP: ALBUTEROL 2.5 MG/IPRATROPIUM 0.5 MG NEB (SCH) NEB ×2 (07:40→13:46)
[2016-11-30] MEDS: SODIUM CHLOR 0.9% 1000 ML INJ 1,000 ML IV SCH ×3 (08:00→22:00)
[2016-11-30] MEDS: ACETAMINOPHEN 325 MG TAB PO PRN ×2 (08:48→23:57)
[2016-11-30] MEDS: PANTOPRAZOLE SOD 20 MG DELAYED RELEASE TAB PO SCH (08:48)
[2016-11-30] MEDS: SODIUM CHLORIDE 0.9% FLUSH 5 ML FLUSH FLUSH SCH ×2 (08:49→21:00)
[2016-11-30 10:13] LABS: AUTOMATED NEUTROPHIL # 9.4 TH/MM3 (1.8-7.7); BASOPHIL % 0.2 % (0.0-2.0); HEMATOCRIT 36.2 % (39.0-51.0); LYMPH % 4.7 % (9.0-44.0); LYMPHOCYTE # 0.5 TH/MM3 (1.0-4.8); MEAN CELL VOLUME 83.5 FL (80.0-100.0); MEAN CORPUSCULAR HEMOGLOBIN 28.8 PG (27.0-34.0); MEAN CORPUSCULAR HGB CONC 34.5 % (32.0-36.0); MONO % 3.3 % (0.0-8.0); NEUT % 91.8 % (16.0-70.0); PLATELET COUNT 359 TH/MM3 (150-450); RED BLOOD COUNT 4.34 MIL/MM3 (4.50-5.90); RED CELL DISTRIBUTION WIDTH 14.6 % (11.6-17.2); WHITE BLOOD COUNT 10.2 TH/MM3 (4.0-11.0)
[2016-11-30 10:18] LABS: ALKALINE PHOSPHATASE 94 U/L (45-117); ALT (GPT) 52 U/L (12-78); ANION GAP 9 MEQ/L (5-15); AST (GOT) 61 U/L (15-37); BICARBONATE 26.7 MEQ/L (21.0-32.0); BLOOD UREA NITROGEN 7 MG/DL (7-18); CHLORIDE 92 MEQ/L (98-107); GLOMERULAR FILTRATION RATE 122 ML/MIN (>89); POTASSIUM 4.2 MEQ/L (3.5-5.1); SODIUM (NA) 128 MEQ/L (136-145); TOTAL BILIRUBIN ADULT 0.4 MG/DL (0.2-1.0)
[2016-11-30 10:21] LABS: HEMO FLAGS AUTO DIFF
[2016-11-30 11:33] LABS: BANDS 5 % (0-6); BASOPHILS 1 % (0-2); CORRECTED NUCLEATED RBC 1 /100 WBC (0-0); METAMYELOCYTES 1 % (0-1); MYELOCYTES 2 % (0-0); NEUTROPHIL # MANUAL DIFF 9.5 TH/MM3 (1.8-7.7); POLYS (SEG NEUTROPHILS) 85 % (16-70); WBC DIFF SAMPLE 100
[2016-11-30 11:34] LABS: PLATELET ESTIMATE SMEAR NORMAL (NORMAL); PLATELET MORPHOLOGY NORMAL (NORMAL); SCAN/DIFF FINAL DIFF MANUAL
[2016-11-30] MEDS: LEVOFLOXACIN 750 MG TAB PO SCH (11:49)
[2016-11-30] MEDS: ACETAMINOPHEN/HYDROcodone 325 MG/10 MG TAB PO PRN ×2 (14:47→21:59)
--- NOTE | 2016-11-30 14:49 | HHI.PR ---
Subjective Remarks Follow up pneumonia, hypoxia. Communication with patient via computer translation service. He is again requiring oxygen. He has been febrile this morning. He is quite concerned about the blood work and making his flight back to [facility]. Objective Vitals Vital Signs Date Time Temp Pulse Resp B/P Pulse Ox O2 Delivery O2 Flow Rate FiO2 11/30/16 08:04 102.7 128 20 139/72 89 11/30/16 07:41 95 Nasal Cannula 21 11/30/16 04:00 98.5 107 18 136/98 93 11/30/16 00:00 98.1 102 18 135/86 97 11/29/16 21:50 Room Air 11/29/16 20:10 112 11/29/16 20:00 98.6 119 18 154/83 100 11/29/16 19:40 94 Nasal Cannula 11/29/16 16:04 98.3 121 20 141/79 94 I/O 11/29/16 11/29/16 11/29/16 11/30/16 11/30/16 11/30/16 07:00 15:00 23:00 07:00 15:00 23:00 Intake Total 1198 ml 840 ml 1480 ml 480 ml Output Total 1350 ml 1100 ml 1550 ml 1650 ml Balance -152 ml -260 ml -70 ml -1170 ml Intake Oral 360 ml 840 ml 480 ml 480 ml IV Total 838 ml 1000 ml Output Urine Total 1350 ml 1100 ml 1550 ml 1650 ml # Voids 1 # Bowel Movements 0 2 0 Result Diagram: 11/30/16 0830 11/30/16 0830 Imaging Last Impressions Chest X-Ray 11/29/16 0000 Signed Impressions: Service Date/Time: Tuesday, November 29, 2016 08:55 - CONCLUSION: No significant change in the diffuse alveolar opacities. Ian Mcdaniels MD CT Angiography 11/26/16 0000 Signed Impressions: Service Date/Time: Saturday, November 26, 2016 14:16 - CONCLUSION: 1. No evidence for pulmonary embolism. 2. Diffuse interstitial and alveolar opacities , nonspecific but likely infectious. 3. Scattered lymph nodes within the mediastinum and upper abdomen, likely reactive. 4. Enlargement of the main pulmonary trunk suggesting elevated pulmonary arterial hypertension. Duncan Gann MD Objective Remarks General: No acute distress. Heart: Regular rate and rhythm. No murmur. Lungs: Clear to auscultation bilaterally. Breathing is nonlabored. Abdomen: Soft, nontender, nondistended. Extremities: No lower extremity edema. Psych: Alert and oriented. Procedures None Urinary Catheter: No Vascular Central Line Catheter: No A/P Problem List: (1) Sepsis ICD Code: A41.9 Status: Resolved (2) PNA (pneumonia) ICD Code: J18.9 Status: Acute (3) Hypoxia ICD Code: R09.02 Status: Acute (4) Hyponatremia ICD Code: E87.1 Status: Resolved (5) Hypokalemia ICD Code: E87.6 Status: Resolved Assessment and Plan 1. Sepsis secondary to pneumonia: Sepsis has improved. Patient initially presented with tachycardia, fever, tachypnea, leukopenia, bandemia. 2. Pneumonia: Possibly opportunistic infection. Appreciate infectious disease recommendations. Continue antibiotics. Still requiring supplemental oxygen. Continue bronchodilators, steroids. He is now febrile. Discussed with Dr. Lugo. 3. Acute hypoxic respiratory failure: Improved. Continue supplemental oxygen, bronchodilators. 4. Hypokalemia, hyponatremia: Resolved. 5. Low CD4 count: Appears to be HIV/AIDS. Appreciate infectious disease recommendations. Patient authorized HIV testing. HIV confirmation test pending. Discharge Planning Anticipate discharge home next 1-2 days if okay with infectious disease. Carmelo Pratt MD Nov 30, 2016 14:49
[2016-11-30 16:48] LABS: HIV 1 AB DIFFERENTIATION Positive (Negative); HIV 1/2 AG AND AB SCREEN Reactive (Negative); HIV 2 AB DIFFERENTIATION Indeterminate (Negative)
--- NOTE | 2016-11-30 17:16 | HHI.IDPN ---
Subjective Subjective Remarks Notes reviewed D/W RN Febrile all day Also requiring O2 More SOB today Minimal cough HIV (+) Antibiotics Levaquin Bactrim/steroids Lines PIV Allergies: Coded Allergies: No Known Allergies (Unverified , 11/25/16) Objective . Vital Signs Date Time Temp Pulse Resp B/P Pulse Ox O2 Delivery O2 Flow Rate FiO2 11/30/16 12:04 100.5 114 20 131/71 94 11/30/16 08:30 94 11/30/16 08:30 Nasal Cannula 2.00 11/30/16 08:10 Nasal Cannula 2.00 11/30/16 08:04 102.7 128 20 139/72 89 11/30/16 08:00 Room Air 11/30/16 07:41 95 Nasal Cannula 21 11/30/16 04:00 98.5 107 18 136/98 93 11/30/16 00:00 98.1 102 18 135/86 97 11/29/16 21:50 Room Air 11/29/16 20:10 112 11/29/16 20:00 98.6 119 18 154/83 100 11/29/16 19:40 94 Nasal Cannula 11/29/16 11/29/16 11/30/16 15:00 23:00 07:00 Intake Total 840 ml 1480 ml 480 ml Output Total 1100 ml 1550 ml 1650 ml Balance -260 ml -70 ml -1170 ml Intake Oral 840 ml 480 ml 480 ml IV Total 1000 ml Output Urine Total 1100 ml 1550 ml 1650 ml # Voids 1 # Bowel Movements 2 0 . Laboratory Tests Test 11/30/16 08:30 White Blood Count 10.2 TH/MM3 Red Blood Count 4.34 MIL/MM3 Hemoglobin 12.5 GM/DL Hematocrit 36.2 % Mean Corpuscular Volume 83.5 FL Mean Corpuscular Hemoglobin 28.8 PG Mean Corpuscular Hemoglobin 34.5 % Concent Red Cell Distribution Width 14.6 % Platelet Count 359 TH/MM3 Mean Platelet Volume 7.4 FL Neutrophils (%) (Auto) 91.8 % Lymphocytes (%) (Auto) 4.7 % Monocytes (%) (Auto) 3.3 % Eosinophils (%) (Auto) 0.0 % Basophils (%) (Auto) 0.2 % Neutrophils # (Auto) 9.4 TH/MM3 Lymphocytes # (Auto) 0.5 TH/MM3 Monocytes # (Auto) 0.3 TH/MM3 Eosinophils # (Auto) 0.0 TH/MM3 Basophils # (Auto) 0.0 TH/MM3 CBC Comment AUTO DIFF Differential Total Cells 100 Counted Neutrophils % (Manual) 85 % Band Neutrophils % 5 % Lymphocytes % 3 % Monocytes % 3 % Basophils % 1 % Neutrophils # (Manual) 9.5 TH/MM3 Metamyelocytes 1 % Myelocytes 2 % Nucleated Red Blood Cells 1 /100 WBC Differential Comment FINAL DIFF MANUAL Platelet Estimate NORMAL Platelet Morphology Comment NORMAL Red Cell Morphology Comment NORMAL Laboratory Tests Test 11/28/16 11/30/16 19:33 08:30 Lactate Dehydrogenase 484 U/L Sodium Level 128 MEQ/L Potassium Level 4.2 MEQ/L Chloride Level 92 MEQ/L Carbon Dioxide Level 26.7 MEQ/L Anion Gap 9 MEQ/L Blood Urea Nitrogen 7 MG/DL Creatinine 0.74 MG/DL Estimat Glomerular Filtration 122 ML/MIN Rate Random Glucose 78 MG/DL Calcium Level 8.2 MG/DL Total Bilirubin 0.4 MG/DL Aspartate Amino Transf 61 U/L (AST/SGOT) Alanine Aminotransferase 52 U/L (ALT/SGPT) Alkaline Phosphatase 94 U/L Total Protein 9.0 GM/DL Albumin 2.6 GM/DL Microbiology Date/Time Procedure Status Source Growth 11/30/16 16:25 Aerobic Blood Culture Received Blood Peripheral Pending 11/30/16 16:25 Anaerobic Blood Culture Received Blood Peripheral Pending 11/30/16 16:30 Aerobic Blood Culture Received Blood Peripheral Pending 11/30/16 16:30 Anaerobic Blood Culture Received Blood Peripheral Pending Imaging Chest X-Ray 11/29/16 0000 Signed Impressions: Service Date/Time: Tuesday, November 29, 2016 08:55 - CONCLUSION: No significant change in the diffuse alveolar opacities. Ian Mcdaniels MD CT Angiography 11/26/16 0000 Signed Impressions: Service Date/Time: Saturday, November 26, 2016 14:16 - CONCLUSION: 1. No evidence for pulmonary embolism. 2. Diffuse interstitial and alveolar opacities , nonspecific but likely infectious. 3. Scattered lymph nodes within the mediastinum and upper abdomen, likely reactive. 4. Enlargement of the main pulmonary trunk suggesting elevated pulmonary arterial hypertension. Duncan Gann MD Physical Exam GENERAL: looks comfortable at rest, on nasal O2. SKIN: Cool and moist. No generalized rash or ecchymosis. HEENT: Pupils equal round and reactive. No scleral icterus. No injection or drainage. Moist oral mucosa, no oral thrush. NECK: Trachea midline. No JVD or lymphadenopathy. Supple, nontender, no meningeal signs. CARDIOVASCULAR: Regular rate and rhythm without murmurs, gallops, or rubs. RESPIRATORY: Clear to auscultation, but decreased throughout the whole zazueta. Breath sounds equal bilaterally. No wheezes, rales, or rhonchi. GASTROINTESTINAL: Abdomen soft, nondistended, not tender. Bowel sounds are present and normoactive. No hepato-splenomegaly, or palpable masses. No guarding. No rebound. MUSCULOSKELETAL: Extremities without clubbing, cyanosis, or edema. No joint tenderness, effusion, or edema noted. No calf tenderness. Negative Homans sign bilaterally. NEUROLOGICAL: Non-focal PSYCH: Calm and cooperative LINE: PIV no evidence of infection Assessment & Plan Remarks IMPRESSION Sepsis on admission, due to bilateral pneumonia Bilateral Pneumonia, very worrisome for OI, has low CD4 counts - has elevated LDH - likely PCP Hypoxemia due to lizette pneumonia HIV has AIDS (low CD4 count and likely PCP) RECOMMENDATION Levaquin for CAP Bactrim for possible PCP Continue steroids Monitor progress Explained to patient that he will not be released unless he is stable medically If he still wants to leave then he will have to sign out AMA Explained this to him with the on-line motorboat mechanic Lindsay Lugo MD Nov 30, 2016 17:16
[2016-11-30] MEDS ORDERED: diphenhydrAMINE HCL 50 MG CAP PO ONE (21:15)
[2016-12-01] VITALS (8 sets, daily range): BP systolic 121–141; BP diastolic 63–83; PULSE 86–127; RESP 16–18; TEMP 97.3–98.3; O2SAT 93–97
[2016-12-01 05:44] LABS: AUTOMATED NEUTROPHIL # 8.4 TH/MM3 (1.8-7.7); HEMATOCRIT 38.9 % (39.0-51.0); LYMPH % 2.7 % (9.0-44.0); LYMPHOCYTE # 0.2 TH/MM3 (1.0-4.8); MEAN CELL VOLUME 83.5 FL (80.0-100.0); MEAN CORPUSCULAR HEMOGLOBIN 28.8 PG (27.0-34.0); MEAN CORPUSCULAR HGB CONC 34.5 % (32.0-36.0); MONO % 4.3 % (0.0-8.0); PLATELET COUNT 346 TH/MM3 (150-450); RED BLOOD COUNT 4.67 MIL/MM3 (4.50-5.90); RED CELL DISTRIBUTION WIDTH 14.7 % (11.6-17.2)
[2016-12-01 05:51] LABS: HEMO FLAGS AUTO DIFF
[2016-12-01 06:21] LABS: POTASSIUM 4.6 MEQ/L (3.5-5.1)
[2016-12-01] MEDS: methylPREDNISolone SOD SUCC 40 MG/1 ML VIAL IV PUSH SCH ×2 (06:53→18:35)
[2016-12-01] MEDS: SULFAMETHOXAZOLE-TRIMETHOPRIM DS 800-160 MG TAB PO SCH ×4 (06:53→23:25)
[2016-12-01 07:31] LABS: BANDS 2 % (0-6); METAMYELOCYTES 2 % (0-1); MYELOCYTES 4 % (0-0); NEUTROPHIL # MANUAL DIFF 8.6 TH/MM3 (1.8-7.7); POLYS (SEG NEUTROPHILS) 87 % (16-70); WBC DIFF SAMPLE 100
[2016-12-01 07:33] LABS: OVALOCYTES 1+ (NORMAL); PLATELET ESTIMATE SMEAR NORMAL (NORMAL); PLATELET MORPHOLOGY NORMAL (NORMAL); SCAN/DIFF FINAL DIFF MANUAL
[2016-12-01] MEDS: PANTOPRAZOLE SOD 20 MG DELAYED RELEASE TAB PO SCH (10:04)
[2016-12-01] MEDS: SODIUM CHLORIDE 0.9% FLUSH 5 ML FLUSH FLUSH SCH ×2 (10:04→20:32)
[2016-12-01] MEDS: LEVOFLOXACIN 750 MG TAB PO SCH (10:04)
--- NOTE | 2016-12-01 13:32 | HHI.PR ---
Subjective Remarks Translation per computer translation service. Follow up pneumonia. The patient has been ambulating in the halls without significant dyspnea. He becomes tachycardic with exertion. Requiring O2 at rest. Objective Vitals Vital Signs Date Time Temp Pulse Resp B/P Pulse Ox O2 Delivery O2 Flow Rate FiO2 12/01/16 11:13 95 Nasal Cannula 2.00 12/01/16 08:00 97.8 97 16 121/67 94 12/01/16 04:22 Nasal Cannula 2.00 12/01/16 04:22 97.3 89 18 135/83 95 11/30/16 23:20 Nasal Cannula 2.00 11/30/16 23:20 98.9 107 18 133/75 94 11/30/16 20:26 105 11/30/16 20:15 Nasal Cannula 2.00 11/30/16 20:15 98.9 114 18 143/80 95 11/30/16 18:16 96 Nasal Cannula 3.00 11/30/16 16:02 99.9 114 20 142/77 96 I/O 11/30/16 11/30/16 11/30/16 12/01/16 12/01/16 12/01/16 07:00 15:00 23:00 07:00 15:00 23:00 Intake Total 480 ml 480 ml 1288 ml 861 ml Output Total 1650 ml 1900 ml 1250 ml 3175 ml Balance -1170 ml -1420 ml 38 ml -2314 ml Intake Oral 480 ml 480 ml 600 ml 240 ml IV Total 688 ml 621 ml Output Urine Total 1650 ml 1900 ml 1250 ml 3175 ml # Bowel Movements 1 3 0 Result Diagram: 12/01/16 0450 12/01/16 0450 Imaging Last Impressions Chest X-Ray 11/29/16 0000 Signed Impressions: Service Date/Time: Tuesday, November 29, 2016 08:55 - CONCLUSION: No significant change in the diffuse alveolar opacities. Ian Mcdaniels MD CT Angiography 11/26/16 0000 Signed Impressions: Service Date/Time: Saturday, November 26, 2016 14:16 - CONCLUSION: 1. No evidence for pulmonary embolism. 2. Diffuse interstitial and alveolar opacities , nonspecific but likely infectious. 3. Scattered lymph nodes within the mediastinum and upper abdomen, likely reactive. 4. Enlargement of the main pulmonary trunk suggesting elevated pulmonary arterial hypertension. Duncan F. Tocci, MD Objective Remarks General: No acute distress. Heart: Regular rate and rhythm. No murmur. Lungs: Clear to auscultation bilaterally. Breathing is nonlabored. Abdomen: Soft, nontender, nondistended. Extremities: No lower extremity edema. Psych: Alert and oriented. Procedures None Urinary Catheter: No Vascular Central Line Catheter: No A/P Problem List: (1) Sepsis ICD Code: A41.9 Status: Resolved (2) PNA (pneumonia) ICD Code: J18.9 Status: Acute (3) Hypoxia ICD Code: R09.02 Status: Acute (4) Hyponatremia ICD Code: E87.1 Status: Resolved (5) Hypokalemia ICD Code: E87.6 Status: Resolved (6) AIDS ICD Code: B20 Status: Acute (7) HIV (human immunodeficiency virus infection) ICD Code: Z21 Status: Acute Assessment and Plan 1. Sepsis secondary to pneumonia: Sepsis has improved. Patient initially presented with tachycardia, fever, tachypnea, leukopenia, bandemia. 2. Pneumonia: Possibly opportunistic infection. Appreciate infectious disease recommendations. Continue antibiotics. Still requiring supplemental oxygen. Continue bronchodilators, steroids. He has been febrile. Continue Levaquin for CAP, Bactrim for possible PCP. Check home oxygen walk test. 3. Acute hypoxic respiratory failure: Improved. Continue supplemental oxygen, bronchodilators. 4. Hypokalemia, hyponatremia: Resolved. 5. HIV/AIDS: Appreciate infectious disease recommendations. Discharge Planning Patient not safe for travel back to [facility] by plane due to pneumonia, hypoxia. No safe discharge plan at this time. Carmelo Pratt MD Dec 01, 2016 13:32
[2016-12-01] MEDS: SODIUM CHLOR 0.9% 1000 ML INJ 1,000 ML IV SCH (15:49)
[2016-12-01] MEDS: ACETAMINOPHEN/HYDROcodone 325 MG/5 MG TAB PO PRN (22:09)
[2016-12-02] VITALS (7 sets, daily range): BP systolic 109–137; BP diastolic 59–90; PULSE 93–120; RESP 16–20; TEMP 97.5–99.5; O2SAT 91–96
[2016-12-02] MEDS: SODIUM CHLOR 0.9% 1000 ML INJ 1,000 ML IV SCH ×2 (05:09→18:29)
[2016-12-02] MEDS: methylPREDNISolone SOD SUCC 40 MG/1 ML VIAL IV PUSH SCH ×2 (06:18→18:00)
[2016-12-02] MEDS: SULFAMETHOXAZOLE-TRIMETHOPRIM DS 800-160 MG TAB PO SCH ×4 (06:18→23:22)
[2016-12-02] MEDS: PANTOPRAZOLE SOD 20 MG DELAYED RELEASE TAB PO SCH (09:00)
[2016-12-02] MEDS: SODIUM CHLORIDE 0.9% FLUSH 5 ML FLUSH FLUSH SCH ×2 (09:00→20:00)
[2016-12-02] MEDS: LEVOFLOXACIN 750 MG TAB PO SCH (11:00)
[2016-12-02] MEDS: ACETAMINOPHEN/HYDROcodone 325 MG/5 MG TAB PO PRN (13:30)
--- NOTE | 2016-12-02 15:42 | HHI.PR ---
Subjective Remarks Seen with Dr. Lugo using computer translation service. Follow up HIV/AIDS, pneumonia. Patient states that he feels better. Not requiring oxygen today. He states that he needs to be out of the hospital on Monday to make his flight from [place] to [facility] on Monday. Objective Vitals Vital Signs Date Time Temp Pulse Resp B/P Pulse Ox O2 Delivery O2 Flow Rate FiO2 12/02/16 12:34 95 12/02/16 12:00 98.4 109 20 130/66 95 12/02/16 08:00 97.5 101 20 117/69 94 12/02/16 08:00 99 Room Air 12/02/16 04:08 97.7 93 16 109/76 96 12/01/16 23:38 97.3 95 16 121/76 95 12/01/16 20:35 97.8 93 16 122/63 93 12/01/16 20:00 Room Air 12/01/16 20:00 120 I/O 12/01/16 12/01/16 12/01/16 12/02/16 12/02/16 12/02/16 07:00 15:00 23:00 07:00 15:00 23:00 Intake Total 861 ml 840 ml 240 ml 240 ml 600 ml Output Total 3175 ml 400 ml 1200 ml 900 ml Balance -2314 ml 440 ml 240 ml -960 ml -300 ml Intake Oral 240 ml 840 ml 240 ml 240 ml 600 ml IV Total 621 ml Output Urine Total 3175 ml 400 ml 1200 ml 900 ml # Voids 5 # Bowel Movements 0 0 0 0 1 Result Diagram: 12/01/16 0450 12/01/16 0450 Imaging Last Impressions Chest X-Ray 11/29/16 0000 Signed Impressions: Service Date/Time: Tuesday, November 29, 2016 08:55 - CONCLUSION: No significant change in the diffuse alveolar opacities. Ian Mcdaniels MD CT Angiography 11/26/16 0000 Signed Impressions: Service Date/Time: Saturday, November 26, 2016 14:16 - CONCLUSION: 1. No evidence for pulmonary embolism. 2. Diffuse interstitial and alveolar opacities , nonspecific but likely infectious. 3. Scattered lymph nodes within the mediastinum and upper abdomen, likely reactive. 4. Enlargement of the main pulmonary trunk suggesting elevated pulmonary arterial hypertension. Duncan Gann MD Objective Remarks General: No acute distress. Heart: Regular rate and rhythm. No murmur. Lungs: Somewhat decreased breath sounds in the bases. No wheeze/rhonchi. Breathing is nonlabored. Abdomen: Soft, nontender, nondistended. Extremities: No lower extremity edema. Psych: Alert and oriented. Procedures None Urinary Catheter: No Vascular Central Line Catheter: No A/P Problem List: (1) Sepsis ICD Code: A41.9 Status: Resolved (2) PNA (pneumonia) ICD Code: J18.9 Status: Acute (3) Hypoxia ICD Code: R09.02 Status: Acute (4) Hyponatremia ICD Code: E87.1 Status: Resolved (5) Hypokalemia ICD Code: E87.6 Status: Resolved (6) AIDS ICD Code: B20 Status: Acute (7) HIV (human immunodeficiency virus infection) ICD Code: Z21 Status: Acute Assessment and Plan 1. Sepsis secondary to pneumonia: Sepsis has improved. Patient initially presented with tachycardia, fever, tachypnea, leukopenia, bandemia. 2. Pneumonia: Possibly opportunistic infection. Appreciate infectious disease recommendations. Continue antibiotics. Still requiring supplemental oxygen. Continue bronchodilators, steroids. He has been febrile. Continue Levaquin for CAP, Bactrim for possible PCP. Transition to oral steroids tomorrow. 3. Acute hypoxic respiratory failure: Improved. Continue supplemental oxygen, bronchodilators. 4. Hypokalemia, hyponatremia: Resolved. 5. HIV/AIDS: Appreciate infectious disease recommendations. Discussed with Dr. Lugo. Discharge Planning Plan for discharge on Monday so patient can make flight on Monday from [place] to [facility]. Carmelo Pratt MD Dec 02, 2016 15:42
--- NOTE | 2016-12-02 16:16 | HHI.IDPN ---
Subjective Subjective Remarks Late entry - note for 12/01/15 Patient seen 12/01 Notes reviewed D/W Haley Fashion Buyer also used to speak with patient Temps better States breathing is a little better On O2 Minimal cough HIV (+) Antibiotics Levaquin Bactrim/steroids Lines PIV Allergies: Coded Allergies: No Known Allergies (Unverified , 11/25/16) Objective . Vital Signs Date Time Temp Pulse Resp B/P Pulse Ox O2 Delivery O2 Flow Rate FiO2 12/02/16 12:34 95 12/02/16 12:00 98.4 109 20 130/66 95 12/02/16 08:00 97.5 101 20 117/69 94 12/02/16 08:00 99 Room Air 12/02/16 04:08 97.7 93 16 109/76 96 12/01/16 23:38 97.3 95 16 121/76 95 12/01/16 20:35 97.8 93 16 122/63 93 12/01/16 20:00 Room Air 12/01/16 20:00 120 12/01/16 12/01/16 12/02/16 15:00 23:00 07:00 Intake Total 840 ml 240 ml 240 ml Output Total 400 ml 1200 ml Balance 440 ml 240 ml -960 ml Intake Oral 840 ml 240 ml 240 ml Output Urine Total 400 ml 1200 ml # Voids 5 # Bowel Movements 0 0 0 . Laboratory Tests Test 12/01/16 04:50 White Blood Count 9.0 TH/MM3 Red Blood Count 4.67 MIL/MM3 Hemoglobin 13.4 GM/DL Hematocrit 38.9 % Mean Corpuscular Volume 83.5 FL Mean Corpuscular Hemoglobin 28.8 PG Mean Corpuscular Hemoglobin 34.5 % Concent Red Cell Distribution Width 14.7 % Platelet Count 346 TH/MM3 Mean Platelet Volume 7.1 FL Neutrophils (%) (Auto) 93.0 % Lymphocytes (%) (Auto) 2.7 % Monocytes (%) (Auto) 4.3 % Eosinophils (%) (Auto) 0.0 % Basophils (%) (Auto) 0.0 % Neutrophils # (Auto) 8.4 TH/MM3 Lymphocytes # (Auto) 0.2 TH/MM3 Monocytes # (Auto) 0.4 TH/MM3 Eosinophils # (Auto) 0.0 TH/MM3 Basophils # (Auto) 0.0 TH/MM3 CBC Comment AUTO DIFF Differential Total Cells 100 Counted Neutrophils % (Manual) 87 % Band Neutrophils % 2 % Lymphocytes % 2 % Monocytes % 3 % Neutrophils # (Manual) 8.6 TH/MM3 Metamyelocytes 2 % Myelocytes 4 % Differential Comment FINAL DIFF MANUAL Platelet Estimate NORMAL Platelet Morphology Comment NORMAL Ovalocytes 1+ Laboratory Tests Test 12/01/16 04:50 Sodium Level 129 MEQ/L Potassium Level 4.6 MEQ/L Chloride Level 94 MEQ/L Carbon Dioxide Level 26.0 MEQ/L Anion Gap 9 MEQ/L Blood Urea Nitrogen 14 MG/DL Creatinine 0.80 MG/DL Estimat Glomerular Filtration 111 ML/MIN Rate Random Glucose 106 MG/DL Calcium Level 8.8 MG/DL Microbiology Date/Time Procedure Status Source Growth 11/30/16 16:25 Aerobic Blood Culture - Preliminary Resulted Blood Peripheral NO GROWTH IN 2 DAYS 11/30/16 16:25 Anaerobic Blood Culture - Preliminary Resulted Blood Peripheral NO GROWTH IN 2 DAYS 11/30/16 16:30 Aerobic Blood Culture - Preliminary Resulted Blood Peripheral NO GROWTH IN 2 DAYS 11/30/16 16:30 Anaerobic Blood Culture - Preliminary Resulted Blood Peripheral NO GROWTH IN 2 DAYS Imaging Chest X-Ray 11/29/16 0000 Signed Impressions: Service Date/Time: Tuesday, November 29, 2016 08:55 - CONCLUSION: No significant change in the diffuse alveolar opacities. Ian Mcdaniels MD CT Angiography 11/26/16 0000 Signed Impressions: Service Date/Time: Saturday, November 26, 2016 14:16 - CONCLUSION: 1. No evidence for pulmonary embolism. 2. Diffuse interstitial and alveolar opacities , nonspecific but likely infectious. 3. Scattered lymph nodes within the mediastinum and upper abdomen, likely reactive. 4. Enlargement of the main pulmonary trunk suggesting elevated pulmonary arterial hypertension. Duncan Gann MD Physical Exam GENERAL: looks comfortable at rest, on nasal O2. SKIN: Cool and moist. No generalized rash or ecchymosis. HEENT: No scleral icterus. No injection or drainage. Moist oral mucosa, no oral thrush. NECK: Trachea midline. No JVD or lymphadenopathy. Supple, nontender, no meningeal signs. CARDIOVASCULAR: Regular rate and rhythm without murmurs, gallops, or rubs. RESPIRATORY: Clear to auscultation, but decreased throughout the whole zazueta. Breath sounds equal bilaterally. No wheezes, rales, or rhonchi. GASTROINTESTINAL: Abdomen soft, nondistended, not tender. Bowel sounds are present and normoactive. No hepato-splenomegaly, or palpable masses. No guarding. No rebound. MUSCULOSKELETAL: Extremities without clubbing, cyanosis, or edema. No joint tenderness, effusion, or edema noted. No calf tenderness. Negative Homans sign bilaterally. NEUROLOGICAL: Non-focal PSYCH: Calm and cooperative LINE: PIV no evidence of infection Assessment & Plan Remarks IMPRESSION Sepsis on admission, due to bilateral pneumonia Bilateral Pneumonia, very worrisome for OI, has low CD4 counts - has elevated LDH - likely PCP Hypoxemia due to lizette pneumonia HIV has AIDS (low CD4 count and likely PCP) RECOMMENDATION Continue Levaquin for CAP Continue Bactrim for possible PCP Continue steroids Monitor progress Patient saying that he needs to leave this weekend for [facility] I explained to him that if he is not medically stable, that we will not discharge him and if he still wants to leave, he will need to sign out AMA He seem to understand this - and I have the interpreter translator explaining this to him. He asked if he is still getting his Rx - I told him that we are treating him aggressively for his pneumonia and we will continue his Rx while he is still in the hospital I gave him copies of all his blood work to bring with him I asked Haley his RN, to make copies of all his radiology reports and give this to him as well D/W with RN Spoke with Lindsay Hamilton MD Dec 02, 2016 16:16
--- NOTE | 2016-12-02 16:22 | HHI.IDPN ---
Subjective Subjective Remarks Notes reviewed Dr Zamudio and I saw patient at the same time We had the on-line engraver machine Patient feels better He is oxygenating better on RA Did some ambulation yesterday and sats holding 95 and less Temsp normal Some occasional nausea, feels like gas No vomiting No itching or rash No abdominal pain No diarrhea Voiding ok He said he can stay until Monday, possibly leave for [facility] on Monday Antibiotics Levaquin Bactrim/steroids Lines PIV Allergies: Coded Allergies: No Known Allergies (Unverified , 11/25/16) Objective . Vital Signs Date Time Temp Pulse Resp B/P Pulse Ox O2 Delivery O2 Flow Rate FiO2 12/02/16 12:34 95 12/02/16 12:00 98.4 109 20 130/66 95 12/02/16 08:00 97.5 101 20 117/69 94 12/02/16 08:00 99 Room Air 12/02/16 04:08 97.7 93 16 109/76 96 12/01/16 23:38 97.3 95 16 121/76 95 12/01/16 20:35 97.8 93 16 122/63 93 12/01/16 20:00 Room Air 12/01/16 20:00 120 12/01/16 12/01/16 12/02/16 15:00 23:00 07:00 Intake Total 840 ml 240 ml 240 ml Output Total 400 ml 1200 ml Balance 440 ml 240 ml -960 ml Intake Oral 840 ml 240 ml 240 ml Output Urine Total 400 ml 1200 ml # Voids 5 # Bowel Movements 0 0 0 . Laboratory Tests Test 12/01/16 04:50 White Blood Count 9.0 TH/MM3 Red Blood Count 4.67 MIL/MM3 Hemoglobin 13.4 GM/DL Hematocrit 38.9 % Mean Corpuscular Volume 83.5 FL Mean Corpuscular Hemoglobin 28.8 PG Mean Corpuscular Hemoglobin 34.5 % Concent Red Cell Distribution Width 14.7 % Platelet Count 346 TH/MM3 Mean Platelet Volume 7.1 FL Neutrophils (%) (Auto) 93.0 % Lymphocytes (%) (Auto) 2.7 % Monocytes (%) (Auto) 4.3 % Eosinophils (%) (Auto) 0.0 % Basophils (%) (Auto) 0.0 % Neutrophils # (Auto) 8.4 TH/MM3 Lymphocytes # (Auto) 0.2 TH/MM3 Monocytes # (Auto) 0.4 TH/MM3 Eosinophils # (Auto) 0.0 TH/MM3 Basophils # (Auto) 0.0 TH/MM3 CBC Comment AUTO DIFF Differential Total Cells 100 Counted Neutrophils % (Manual) 87 % Band Neutrophils % 2 % Lymphocytes % 2 % Monocytes % 3 % Neutrophils # (Manual) 8.6 TH/MM3 Metamyelocytes 2 % Myelocytes 4 % Differential Comment FINAL DIFF MANUAL Platelet Estimate NORMAL Platelet Morphology Comment NORMAL Ovalocytes 1+ Laboratory Tests Test 12/01/16 04:50 Sodium Level 129 MEQ/L Potassium Level 4.6 MEQ/L Chloride Level 94 MEQ/L Carbon Dioxide Level 26.0 MEQ/L Anion Gap 9 MEQ/L Blood Urea Nitrogen 14 MG/DL Creatinine 0.80 MG/DL Estimat Glomerular Filtration 111 ML/MIN Rate Random Glucose 106 MG/DL Calcium Level 8.8 MG/DL Microbiology Date/Time Procedure Status Source Growth 11/30/16 16:25 Aerobic Blood Culture - Preliminary Resulted Blood Peripheral NO GROWTH IN 2 DAYS 11/30/16 16:25 Anaerobic Blood Culture - Preliminary Resulted Blood Peripheral NO GROWTH IN 2 DAYS 11/30/16 16:30 Aerobic Blood Culture - Preliminary Resulted Blood Peripheral NO GROWTH IN 2 DAYS 11/30/16 16:30 Anaerobic Blood Culture - Preliminary Resulted Blood Peripheral NO GROWTH IN 2 DAYS Imaging Chest X-Ray 11/29/16 0000 Signed Impressions: Service Date/Time: Tuesday, November 29, 2016 08:55 - CONCLUSION: No significant change in the diffuse alveolar opacities. Ian Mcdaniels MD CT Angiography 11/26/16 0000 Signed Impressions: Service Date/Time: Saturday, November 26, 2016 14:16 - CONCLUSION: 1. No evidence for pulmonary embolism. 2. Diffuse interstitial and alveolar opacities , nonspecific but likely infectious. 3. Scattered lymph nodes within the mediastinum and upper abdomen, likely reactive. 4. Enlargement of the main pulmonary trunk suggesting elevated pulmonary arterial hypertension. Duncan Gann MD Physical Exam GENERAL: looks comfortable at rest, on RA SKIN: Cool and moist. No generalized rash or ecchymosis. HEENT: No scleral icterus. No injection or drainage. Moist oral mucosa, no oral thrush. NECK: . Supple, nontender, no meningeal signs. CARDIOVASCULAR: Regular rate and rhythm without murmurs, gallops, or rubs. RESPIRATORY: Decreased throughout the whole zazueta. No wheezes, rales, or rhonchi. GASTROINTESTINAL: Abdomen soft, nondistended, not tender. Bowel sounds are present and normoactive. . No guarding. No rebound. MUSCULOSKELETAL: Extremities without clubbing, cyanosis, or edema. No calf tenderness. NEUROLOGICAL: Non-focal PSYCH: Calm and cooperative LINE: PIV no evidence of infection Assessment & Plan Remarks IMPRESSION Sepsis on admission, due to bilateral pneumonia Bilateral Pneumonia, very worrisome for OI, has low CD4 counts - has elevated LDH - likely PCP - better Hypoxemia due to lizette pneumonia - improving HIV has AIDS (low CD4 count and likely PCP) RECOMMENDATION Continue Levaquin for CAP, give 7 days Continue Bactrim for possible PCP, give 21 days - give till Dec 20 Change steroids to po this weekend and taper over 21 days Monitor progress If sats stay good should be ok to D/C Monday Need to ambulate more so we can see monitor respiratory status Will ask CM to assist with getting all his meds filled for D/C on Monday Explained plan with patient Dr Pratt and I had discussed current plan with patient Lindsay Lugo MD Dec 02, 2016 16:22
[2016-12-02] MEDS ORDERED: diphenhydrAMINE HCL 50 MG CAP PO PRN (20:15)
[2016-12-02] MEDS: ACETAMINOPHEN/HYDROcodone 325 MG/10 MG TAB PO PRN (22:02)
[2016-12-03] VITALS (8 sets, daily range): BP systolic 119–138; BP diastolic 64–79; PULSE 103–123; RESP 18–20; TEMP 98–101; O2SAT 92–96
[2016-12-03] MEDS: SULFAMETHOXAZOLE-TRIMETHOPRIM DS 800-160 MG TAB PO SCH ×4 (04:50→23:42)
[2016-12-03] MEDS: methylPREDNISolone SOD SUCC 40 MG/1 ML VIAL IV PUSH SCH (04:50)
[2016-12-03] MEDS: ACETAMINOPHEN 325 MG TAB PO PRN (04:50)
[2016-12-03] MEDS: SODIUM CHLORIDE 0.9% FLUSH 5 ML FLUSH FLUSH SCH ×2 (09:00→21:00)
[2016-12-03] MEDS: PANTOPRAZOLE SOD 20 MG DELAYED RELEASE TAB PO SCH (09:01)
[2016-12-03] MEDS: LEVOFLOXACIN 750 MG TAB PO SCH (13:25)
[2016-12-03] MEDS: ACETAMINOPHEN/HYDROcodone 325 MG/5 MG TAB PO PRN (13:31)
--- NOTE | 2016-12-03 13:54 | HHI.PR ---
Subjective Remarks Communication using computer translation service. Follow up pneumonia. The patient states that the sleeping pill he got last night did not help. In fact it made him very uncomfortable. He states that his oxygenation is better and he is breathing better. No chest pain or dyspnea. He does report constipation. Objective Vitals Vital Signs Date Time Temp Pulse Resp B/P Pulse Ox O2 Delivery O2 Flow Rate FiO2 12/03/16 13:08 100.3 122 18 138/68 94 12/03/16 12:53 92 21 12/03/16 09:05 99.4 111 18 130/75 94 12/03/16 04:00 101.0 123 20 133/79 92 12/03/16 00:21 93 12/02/16 23:20 98.6 113 18 134/59 91 12/02/16 20:00 99.5 120 18 135/90 93 12/02/16 20:00 119 12/02/16 19:00 Room Air 12/02/16 16:00 98.0 114 20 137/65 96 I/O 12/02/16 12/02/16 12/02/16 12/03/16 12/03/16 12/03/16 07:00 15:00 23:00 07:00 15:00 23:00 Intake Total 240 ml 600 ml 480 ml 240 ml Output Total 1200 ml 900 ml 500 ml 1000 ml Balance -960 ml -300 ml -20 ml -760 ml Intake Oral 240 ml 600 ml 480 ml 240 ml Output Urine Total 1200 ml 900 ml 500 ml 1000 ml # Voids 3 # Bowel Movements 0 1 2 0 Result Diagram: 12/01/16 0450 12/01/16 0450 Imaging Last Impressions Chest X-Ray 11/29/16 0000 Signed Impressions: Service Date/Time: Tuesday, November 29, 2016 08:55 - CONCLUSION: No significant change in the diffuse alveolar opacities. Ian Mcdaniels MD CT Angiography 11/26/16 0000 Signed Impressions: Service Date/Time: Saturday, November 26, 2016 14:16 - CONCLUSION: 1. No evidence for pulmonary embolism. 2. Diffuse interstitial and alveolar opacities , nonspecific but likely infectious. 3. Scattered lymph nodes within the mediastinum and upper abdomen, likely reactive. 4. Enlargement of the main pulmonary trunk suggesting elevated pulmonary arterial hypertension. Duncan Gann MD Objective Remarks General: No acute distress. Heart: Regular rate and rhythm. No murmur. Lungs: Somewhat decreased breath sounds in the bases. No wheeze/rhonchi. Breathing is nonlabored. Abdomen: Soft, nontender, nondistended. Extremities: No lower extremity edema. Psych: Alert and oriented. Procedures None Urinary Catheter: No Vascular Central Line Catheter: No A/P Problem List: (1) Sepsis ICD Code: A41.9 Status: Resolved (2) PNA (pneumonia) ICD Code: J18.9 Status: Acute (3) Hypoxia ICD Code: R09.02 Status: Acute (4) Hyponatremia ICD Code: E87.1 Status: Resolved (5) Hypokalemia ICD Code: E87.6 Status: Resolved (6) AIDS ICD Code: B20 Status: Acute (7) HIV (human immunodeficiency virus infection) ICD Code: Z21 Status: Acute Assessment and Plan 1. Sepsis secondary to pneumonia: Sepsis has improved. Patient initially presented with tachycardia, fever, tachypnea, leukopenia, bandemia. 2. Pneumonia: Possibly opportunistic infection. Appreciate infectious disease recommendations. Continue antibiotics. Still requiring supplemental oxygen. Continue bronchodilators, steroids. He was febrile again overnight. Continue Levaquin for CAP, Bactrim for possible PCP. Transition to oral steroids. 3. Acute hypoxic respiratory failure: Improved. Continue supplemental oxygen, bronchodilators. 4. Hypokalemia, hyponatremia: Resolved. 5. HIV/AIDS: Appreciate infectious disease recommendations. Patient will need to follow up when he returns home to [facility]. Discharge Planning Plan for discharge tomorrow if clinically stable so patient can make flight on Monday from [place] to [facility]. Carmelo Pratt MD Dec 03, 2016 13:54
[2016-12-03] MEDS ORDERED: TEMAZEPAM 7.5 MG CAP PO PRN (14:00)
[2016-12-03] MEDS: SODIUM CHLOR 0.9% 1000 ML INJ 1,000 ML IV SCH ×2 (17:00→21:59)
[2016-12-03] MEDS: predniSONE 20 MG TAB PO SCH (21:58)
[2016-12-04] VITALS: BP 116/58; PULSE 98; RESP 18; TEMP 98.3; O2SAT 97
[2016-12-04 04:00] VITALS: BP 115/61; PULSE 89; RESP 18; TEMP 97.5; O2SAT 99
[2016-12-04] MEDS: SULFAMETHOXAZOLE-TRIMETHOPRIM DS 800-160 MG TAB PO SCH ×2 (04:59→12:09)
[2016-12-04] MEDS: SODIUM CHLOR 0.9% 1000 ML INJ 1,000 ML IV SCH (05:59)
[2016-12-04 08:00] VITALS: BP 116/61; PULSE 92; PULSE 96; RESP 20; TEMP 97.6; O2SAT 93
[2016-12-04] MEDS: SODIUM CHLORIDE 0.9% FLUSH 5 ML FLUSH FLUSH SCH (09:00)
[2016-12-04] MEDS ORDERED: PRED10 PO (09:45)
[2016-12-04] MEDS ORDERED: LEVA750T PO (09:45)
[2016-12-04] MEDS ORDERED: BACT800T5 PO (09:45)
--- NOTE | 2016-12-04 09:45 | HHI.DCPOC ---
Discharge Care Plan Diagnosis: (1) AIDS (2) HIV (human immunodeficiency virus infection) (3) Sepsis (4) PNA (pneumonia) (5) Hypoxia Goals to Promote Your Health * To prevent worsening of your condition and complications * To maintain your health at the optimal level Directions to Meet Your Goals Take your medications as prescribed Follow your dietary instruction Follow activity as directed Keep your appointments as scheduled Take your immunizations and boosters as scheduled If your symptoms worsen call your PCP, if no PCP go to Urgent Care Center or Emergency Room Smoking is Dangerous to Your Health. Avoid second hand smoke Call the 24-hour hour crisis hotline for domestic abuse at Carmelo Pratt MD Dec 04, 2016 09:45
[2016-12-04] MEDS: predniSONE 20 MG TAB PO SCH (10:01)
[2016-12-04] MEDS: PANTOPRAZOLE SOD 20 MG DELAYED RELEASE TAB PO SCH (10:01)
[2016-12-04] MEDS ORDERED: NYST1000 SWISH-SWAL (10:15)
--- NOTE | 2016-12-04 10:20 | HHI.DS ---
Discharge Summary Admission Date Nov 24, 2016 at 21:57 Discharge Date: Dec 04, 2016 Admitting Diagnosis respiratory distress, diffuse interstitial pneumonia, hypoxemia (1) Sepsis ICD Code: A41.9 (2) PNA (pneumonia) ICD Code: J18.9 (3) Hypoxia ICD Code: R09.02 (4) Hyponatremia ICD Code: E87.1 (5) Hypokalemia ICD Code: E87.6 (6) AIDS ICD Code: B20 (7) HIV (human immunodeficiency virus infection) ICD Code: Z21 Procedures None Brief History - From Admission This is a Swazi-speaking 31-year-old male with no reported PMH who presented to the ER with complaints of fever, chills, cough and SOB x1 wk. Denies nausea , vomiting or sick contacts. On arrival, BP 139/99, HR 137, O2 sat 85% on RA, Temp 102.5. WBC 3.9. Bands 13. Na 130. K+ 3.4. Lactic Acid 1.0. CXR w/ diffuse bilateral hazy opacities. S/p Rocephin/Zithro and Blood Cultures in ER. CBC/BMP: 12/01/16 0450 12/01/16 0450 Imaging Last Impressions Chest X-Ray 11/29/16 0000 Signed Impressions: Service Date/Time: Tuesday, November 29, 2016 08:55 - CONCLUSION: No significant change in the diffuse alveolar opacities. Ian Mcdaniels MD CT Angiography 11/26/16 0000 Signed Impressions: Service Date/Time: Saturday, November 26, 2016 14:16 - CONCLUSION: 1. No evidence for pulmonary embolism. 2. Diffuse interstitial and alveolar opacities , nonspecific but likely infectious. 3. Scattered lymph nodes within the mediastinum and upper abdomen, likely reactive. 4. Enlargement of the main pulmonary trunk suggesting elevated pulmonary arterial hypertension. Duncan Gann MD PE at Discharge General: No acute distress. HEENT: Oral thrush noted. Heart: Regular rate and rhythm. No murmur. Lungs: Somewhat decreased breath sounds in the bases. No wheeze/rhonchi. Breathing is nonlabored. Abdomen: Soft, nontender, nondistended. Extremities: No lower extremity edema. Psych: Alert and oriented. Pt update on day of discharge Computer translation service utilized. The patient states that his breathing is better. He denies shortness of breath or chest pain. He has been ambulating without difficulty. He has not been requiring oxygen. He has been afebrile overnight. He does report pain in his mouth. He is able to eat without difficulty. He states that he is going to be flying home to [facility] tomorrow. Hospital Course The patient was admitted for management of sepsis secondary to pneumonia. He was started on IV antibiotics. CD4 count was low. Patient was counseled and agreed to HIV testing. Infectious disease was consulted. HIV testing was positive. Patient was continued on Levaquin for treatment of pneumonia. He was also started on Bactrim for treatment of probable PCP infection. The patient was weaned off oxygen. He improved clinically throughout the hospitalization. He did develop oral thrush and nystatin was prescribed. The patient was counseled extensively regarding possible development of shortness of breath while flying. He also was counseled to follow-up as soon as he returns to [facility] so that he can begin treatment for HIV/AIDS. Case management assisted in providing prescriptions for the patient prior to him leaving the hospital. Patient states that he understands the risks involved with flying as well as the importance of follow-up with a physician once he returns home. Pt Condition on Discharge: Stable Discharge Disposition: Discharge Home Discharge Time: > 30 minutes Discharge Instructions DIET: Follow Instructions for: As Tolerated, No Restrictions Activities you can perform: Regular-No Restrictions Follow up Referrals: Infectious Disease - 1 Week PCP Follow-up - 1 Week New Medications: Nystatin Liq (Nystatin Liq) 100,000 unit/ml Susp 5 ML SWISH-SWAL QID Infection #120 Ref 0 ML Prednisone (Prednisone) 10 Mg Tab 10 MG PO DIRECTED Take 40mg daily for 5 days, 30mg daily for 5 days, 20mg daily for 5 days, 10 mg daily for 5 days, then stop. Inflammation #50 Ref 0 TAB Levofloxacin (Levaquin) 750 Mg Tab 750 MG PO Q24H Infection #1 TAB Sulfamethoxazole-Trimethoprim (Bactrim DS) 800-160 Mg Tab 2 TAB PO Q6HR Infection #128 TAB Carmelo Pratt MD Dec 04, 2016 10:20
[2016-12-04] MEDS ORDERED: NYSTATIN SUSP 500,000 U/5 ML CUP SWISH-SWAL ONE (10:30)
[2016-12-04 11:20] VITALS: O2SAT 92
[2016-12-04 12:00] VITALS: BP 118/61; PULSE 95; RESP 20; TEMP 97.8; O2SAT 93
[2016-12-04] MEDS: LEVOFLOXACIN 750 MG TAB PO SCH (12:09)
== END 2016-12-04 13:14 | disposition home or self-care (01) | DRG 974 ==
LOC: NEPB 19:59 → NEDA 21:57 → NEDH 11-25 06:34 → N04A 11-25 14:00
PROVIDERS: ADMIT Family Medicine; ATTEND Family Medicine
DX: B20 Human immunodeficiency virus [HIV] disease (principal); A41.9 Sepsis, unspecified organism; J96.01 Acute respiratory failure with hypoxia; B59 Pneumocystosis; B37.0 Candidal stomatitis; J18.9 Pneumonia, unspecified organism; E87.1 Hypo-osmolality and hyponatremia; E86.0 Dehydration; E87.6 Hypokalemia; K59.00 Constipation, unspecified; Z88.0 Allergy status to penicillin
CPT/HCPCS: 71010; 71020; 71275; 76937; 80048; 80053; 80202; 81001; 83605; 83615; 83735; 83880; 85007; 85025; 85027; 86355; 86357; 86359; 86360; 86701; 86702; 86703; 87040; 87449; 87804; 93005; 94620; 94640; 94664; 96365; 96375; J0456; J0692; J0696; J2405; J2920; J3370; J7030; J7040; J7050; J7512; Q0163; Q9967